=== PATIENT | male | born 1960 | race Caucasian/White ===

== ENCOUNTER 2024-05-08 18:30 | Inpatient (IN) | payer OTHER ==
--- NOTE | 2024-05-08 18:52 | ED ---
General Adult HPI - General Chief complaint: Chest Pain Stated complaint: Abn Labs Time Seen by Provider: 05/08/24 18:35 Source: patient, RN notes reviewed, old records reviewed Mode of arrival: ambulatory Limitations: no limitations - History of Present Illness Initial comments: Is a 63-year-old male who presents to the emergency department the past medical history significant for diabetes hypertension high cholesterol and smoking. Patient comes in today after he started having chest pain last night at 1 AM and was seen in another hospital and told he needed to be transferred to a tertiary facility with field operations farm manager. Patient refused the left AMA because he had to drive back down here to [place]. Patient states he also told him he was in a trial fibrillation for the first time. Patient is not on any blood thinners. Patient denies feeling the same chest discomfort as he did yesterday but he states there is a slight discomfort in his chest currently. Patient denies any radiation of the pain last night patient denies any difficulty breathing or shortness of breath or any diaphoretic episode. Patient [place] any swelling to the legs or calf tenderness. - Related Data Allergies Allergy/AdvReac Type Severity Reaction Status Date / Time No Known Allergies Allergy Verified 05/08/24 18:37 Review of Systems ROS Statement: Those systems with pertinent positive or pertinent negative responses have been documented in the HPI. ROS Other: All systems not noted in ROS Statement are negative. Past Medical History Past Medical History: Diabetes Mellitus, Hyperlipidemia, Hypertension History of Any Multi-Drug Resistant Organisms: None Reported Past Surgical History: Cholecystectomy Smoking Status: Current every day smoker General Exam - General Exam Comments Initial Comments: GENERAL: Patient is well-developed and well-nourished. Patient is nontoxic and well- hydrated and is in no acute distress. ENT: Neck is soft and supple. No significant lymphadenopathy is noted. Oropharynx is clear. Moist mucous membranes. Neck has full range of motion without eliciting any pain. EYES: The sclera were anicteric and conjunctiva were pink and moist. Extraocular movements were intact and pupils were equal round and reactive to light. Eyelids were unremarkable. PULMONARY: Unlabored respirations. Good breath sounds bilaterally. No audible rales rhonchi or wheezing was noted. CARDIOVASCULAR: There is a regular rate and rhythm without any murmurs gallops or rubs. ABDOMEN: Soft and nontender with normal bowel sounds. SKIN: Skin is clear with no lesions or rashes and otherwise unremarkable. NEUROLOGIC: Patient is alert and oriented x3. Cranial nerves II through XII are grossly intact. Motor and sensory are also intact. Normal speech, volume and content. Symmetrical smile. MUSCULOSKELETAL: Normal extremities with adequate strength and full range of motion. LYMPHATICS: No significant lymphadenopathy is noted PSYCHIATRIC: Normal psychiatric evaluation. Limitations: no limitations Course Vital Signs 05/08/24 18:34 Temperature 97.9 F Pulse Rate 64 Respiratory 16 Rate Blood Pressure 127/85 O2 Sat by Pulse 98 Oximetry Medical Decision Making - Medical Decision Making EKG is interpreted by myself EKG shows sinus rhythm at 61 bpm. Normal 143 QRS 92 QT intervals 421 QTc is 423. Patient EKG shows no ST segment ovation depression Was pt. sent in by a medical professional or institution ([facility], ADVERTISING TRAFFIC MANAGER, urgent care, hospital, or usp...) When possible be specific @ -No Did you speak to anyone other than the patient for history (EMS, parent, family, police, friend...)? What history was obtained from this source @ -No Did you review nursing and triage notes (agree or disagree)? Why? @ -I reviewed and agree with nursing and triage notes Were old charts reviewed (outside hosp., previous admission, EMS record, old EKG, old radiological studies, urgent care reports/EKG's, usp records)? Report findings @ -No old charts were reviewed Differential Diagnosis? @ -Differential Chest Pain: Stable Angina, Unstable Angina, STEMI, NSTEMI Aortic Dissection, Pneumothorax, Musculoskeletal, Esophageal Spasm GERD, Cholecystitis, Pancreatitis, Zoster, this is not meant to be an all-inclusive list. EKG interpreted by me (3pts min.). @ -As above X-rays interpreted by me (1pt min.). @ -Chest x-ray shows no acute normality CT interpreted by me (1pt min.). @ -None done U/S interpreted by me (1pt. min.). @ -None done What testing was considered but not performed or refused? (CT, X-rays, U/S, labs)? Why? @ -None What meds were considered but not given or refused? Why? @ -None Did you discuss the management of the patient with other professionals (professionals i.e. MOIS[facility] Peraza, ADVERTISING TRAFFIC MANAGER, lab, RT, psych nurse, social media sr strategy manager, indigo mixer, teacher, network security officer, catalytic case operator)? Give summary @ -Spoke with Dr. Kerns and he agreed to admit the patient. I spoke with Cardiology and informed them of the elevated troponin. Was smoking cessation discussed for >3mins.? @ -Yes Was critical care preformed (if so, how long)? @ -No Were there social determinants of health that impacted care today? How? (Homelessness, low income, unemployed, alcoholism, drug addiction, transportation, low edu. Level, literacy, decrease access to med. care, shelter, rehab)? @ -No Was there de-escalation of care discussed even if they declined (Discuss DNR or withdrawal of care, Hospice)? DNR status @ -No What co-morbidities impacted this encounter? (DM, HTN, Smoking, COPD, CAD, Cancer, CVA, ARF, Chemo, Hep., AIDS, mental health diagnosis, sleep apnea, morbid obesity)? @ -None Was patient admitted / discharged? Hospital course, mention meds given and route, prescriptions, significant lab abnormalities, going to OR and other pertinent info. @ -Patient has been chest pain-free throughout his ED course. Patients Troponin was elevated and I started him on heparin and spoke with cardiology Undiagnosed new problem with uncertain prognosis? @ -No Drug Therapy requiring intensive monitoring for toxicity (Heparin, Nitro, Insulin, Cardizem)? @ -No Were any procedures done? @ -No Diagnosis/symptom? @ -NSTEMI Acute, or Chronic, or Acute on Chronic? @ -Acute Uncomplicated (without systemic symptoms) or Complicated (systemic symptoms)? @ -Complicated Side effects of treatment? @ -No Exacerbation, Progression, or Severe Exacerbation? @ -No Poses a threat to life or bodily function? How? (Chest pain, [place], PR, pneumonia, PE, COPD, DKA, ARF, appy, cholecystitis, CVA, Diverticulitis, Homicidal, Suicidal, threat to staff... and all critical care pts) @ -Yes this could lead to end organ dysfunction - Lab Data Result diagrams: 05/08/24 18:50 05/08/24 18:50 Lab Results 05/08/24 05/08/24 05/08/24 Range/Units 18:50 18:50 18:50 WBC 7.1 (3.8-10.6) k/uL RBC 5.93 H (4.30-5.90) m/uL Hgb 18.5 H (13.0-17.5) gm/dL Hct 55.9 H (39.0-53.0) % MCV 94.2 (80.0-100.0) fL MCH 31.3 (25.0-35.0) pg MCHC 33.2 (31.0-37.0) g/dL RDW 13.5 (11.5-15.5) % Plt Count 169 (150-450) k/uL MPV 7.8 Neutrophils % 58 % Lymphocytes % 29 % Monocytes % 9 % Eosinophils % 2 % Basophils % 1 % Neutrophils # 4.1 (1.3-7.7) k/uL Lymphocytes # 2.0 (1.0-4.8) k/uL Monocytes # 0.6 (0-1.0) k/uL Eosinophils # 0.1 (0-0.7) k/uL Basophils # 0.1 (0-0.2) k/uL PT 10.5 (10.0-12.5) sec INR 1.0 (<1.2) APTT 25.1 (22.0-30.0) sec Sodium 135 L (137-145) mmol/L Potassium 3.9 (3.5-5.1) mmol/L Chloride 106 (98-107) mmol/L Carbon Dioxide 23 (22-30) mmol/L Anion Gap 6 mmol/L BUN 20 (9-20) mg/dL Creatinine 0.86 (0.66-1.25) mg/dL Est GFR (CKD-EPI)AfAm >90 (>60 ml/min/1.73 sqM) Est GFR (CKD-EPI)NonAf >90 (>60 ml/min/1.73 sqM) Glucose 151 H (74-99) mg/dL Calcium 9.2 (8.4-10.2) mg/dL Magnesium 1.8 (1.6-2.3) mg/dL Total Bilirubin 1.2 (0.2-1.3) mg/dL AST 30 (17-59) U/L ALT 16 (4-49) U/L Alkaline Phosphatase 47 (38-126) U/L Troponin I (0.000-0.034) ng/mL Total Protein 6.4 (6.3-8.2) g/dL Albumin 4.1 (3.5-5.0) g/dL 05/08/24 Range/Units 18:50 WBC (3.8-10.6) k/uL RBC (4.30-5.90) m/uL Hgb (13.0-17.5) gm/dL Hct (39.0-53.0) % MCV (80.0-100.0) fL MCH (25.0-35.0) pg MCHC (31.0-37.0) g/dL RDW (11.5-15.5) % Plt Count (150-450) k/uL MPV Neutrophils % % Lymphocytes % % Monocytes % % Eosinophils % % Basophils % % Neutrophils # (1.3-7.7) k/uL Lymphocytes # (1.0-4.8) k/uL Monocytes # (0-1.0) k/uL Eosinophils # (0-0.7) k/uL Basophils # (0-0.2) k/uL PT (10.0-12.5) sec INR (<1.2) APTT (22.0-30.0) sec Sodium (137-145) mmol/L Potassium (3.5-5.1) mmol/L Chloride (98-107) mmol/L Carbon Dioxide (22-30) mmol/L Anion Gap mmol/L BUN (9-20) mg/dL Creatinine (0.66-1.25) mg/dL Est GFR (CKD-EPI)AfAm (>60 ml/min/1.73 sqM) Est GFR (CKD-EPI)NonAf (>60 ml/min/1.73 sqM) Glucose (74-99) mg/dL Calcium (8.4-10.2) mg/dL Magnesium (1.6-2.3) mg/dL Total Bilirubin (0.2-1.3) mg/dL AST (17-59) U/L ALT (4-49) U/L Alkaline Phosphatase (38-126) U/L Troponin I 1.270 H* (0.000-0.034) ng/mL Total Protein (6.3-8.2) g/dL Albumin (3.5-5.0) g/dL Critical Care Time Critical Care Time: Yes Total Critical Care Time: 35 Disposition Clinical Impression: Acute non-ST elevation myocardial infarction (NSTEMI) Disposition: ADMITTED IP TO THIS HOSP Referrals: Brayden Kerns MD [Primary Care Provider] - 1-2 days Time of Disposition: 20:03
[2024-05-08] MEDS: NITROGLYCERIN OINT 1 INCH/GM PACKET TOPICAL STA (18:57)
[2024-05-08] MEDS: ASPIRIN 81 MG PO STA (19:01)
[2024-05-08 19:04] LABS: Basophils # (A) 0.1 k/uL (0-0.2); Basophils % (A) 1 %; Eosinophils # (A) 0.1 k/uL (0-0.7); Eosinophils % (A) 2 %; HGB 18.5 gm/dL (13.0-17.5); Lymphocytes % (A) 29 %; MCH 31.3 pg (25.0-35.0); MCHC 33.2 g/dL (31.0-37.0); MCV 94.2 fL (80.0-100.0); Mean Platelet Volume 7.8; Monocytes # (A) 0.6 k/uL (0-1.0); Monocytes % (A) 9 %; Neutrophils # (A) 4.1 k/uL (1.3-7.7); Neutrophils % (A) 58 %; Platelet Count 169 k/uL (150-450); RBC 5.93 m/uL (4.30-5.90); RDW 13.5 % (11.5-15.5); WBC 7.1 k/uL (3.8-10.6)
[2024-05-08 19:09] LABS: HCT 55.9 % (39.0-53.0)
[2024-05-08 19:13] LABS: Partial Thromboplastin Time 25.1 sec (22.0-30.0); Prothrombin Time 10.5 sec (10.0-12.5)
[2024-05-08 19:18] LABS: ALT 16 U/L (4-49); African American GFR (CKD) >90 (>60 ml/min/1.73 sqM); Albumin 4.1 g/dL (3.5-5.0); Anion Gap 6 mmol/L; Blood Urea Nitrogen 20 mg/dL (9-20); Calcium 9.2 mg/dL (8.4-10.2); Carbon Dioxide 23 mmol/L (22-30); Chloride 106 mmol/L (98-107); Glucose 151 mg/dL (74-99); Magnesium 1.8 mg/dL (1.6-2.3); Non-African American GFR(CKD) >90 (>60 ml/min/1.73 sqM); Sodium 135 mmol/L (137-145); Total Bilirubin 1.2 mg/dL (0.2-1.3); Total Protein 6.4 g/dL (6.3-8.2)
[2024-05-08 19:23] LABS: AST 30 U/L (17-59); Alkaline Phosphatase 47 U/L (38-126)
[2024-05-08 19:24] LABS: Potassium 3.9 mmol/L (3.5-5.1)
--- NOTE | 2024-05-08 19:40 | XR ---
EXAMINATION TYPE: XR chest 2V DATE OF EXAM: 05/08/2024 7:16 PM CLINICAL INDICATION:Male, 63 years old with history of Chest Pain and shortness of breath COMPARISON: Chest radiographs from the same day. TECHNIQUE: XR chest 2V Frontal view of the chest. FINDINGS: Lungs/Pleura: There is similar increased interstitial markings bilaterally. No pleural effusions or p neumothorax appreciated. Heart/mediastinum: Cardiomediastinal silhouette is stable. Musculoskeletal: No acute osseous pathology. Other findings: None IMPRESSION: Bilateral interstitial opacities is concerning for developing infectious/inflammatory process.
[2024-05-08] MEDS ORDERED: NITROGLYCERIN SL TABS 0.4 MG TAB SUBLINGUAL PRN (20:04)
[2024-05-08] MEDS: HEPARIN SODIUM 1,000 UN/ML (10ML VL) IV ONE (22:37)
[2024-05-08] MEDS: HEPARIN SOD,PORK IN 0.45% NACL 25,000 UNIT in 0.45% NACL 1 250ML.BAG IV SCH (22:38)
[2024-05-09] MEDS: NITROGLYCERIN OINT 1 INCH/GM PACKET TOPICAL SCH (00:07)
[2024-05-09] MEDS: HEPARIN SODIUM 1,000 UN/ML (10ML VL) IV PRN (05:55)
[2024-05-09] MEDS ORDERED: NITROGLYCERIN SL TABS 0.4 MG TAB SUBLINGUAL PRN (07:55)
[2024-05-09] MEDS ORDERED: DEXTROSE 50% SYRINGE 50 ML IVP PRN ×4 (08:01→22:30)
--- NOTE | 2024-05-09 08:01 | P.HPIM ---
History of Present Illness H&P Date: 05/09/24 Chief Complaint: Chest pain The patient is 60-year-old white male with known history of diabetes [place] and had [place] chest pressure. Evaluation in the hospital there showed elevated troponin. He transferred himself to his local hospital where is here for follow-up. Elevated troponin and STEMI is noted. Mechanical Maintenance consulted he will need cardiac catheterization and is agreeable. No previous anginal equivalent. Diabetes is not perfectly controlled. Opiate dependence secondary to DDD Review of Systems Constitutional: Denies chills, Denies fever Eyes: denies blurred vision, denies pain Ears, nose, mouth and throat: Denies headache, Denies sore throat Cardiovascular: Reports chest pain, Denies edema, Denies orthopnea, Denies shortness of breath Gastrointestinal: Denies abdominal pain, Denies diarrhea, Denies nausea, Denies vomiting Musculoskeletal: Denies myalgias Integumentary: Denies pruritus, Denies rash Past Medical History Past Medical History: Diabetes Mellitus, Hyperlipidemia, Hypertension History of Any Multi-Drug Resistant Organisms: None Reported Past Surgical History: Cholecystectomy Smoking Status: Current every day smoker Medications and Allergies Home Medications Medication Instructions Recorded Confirmed Type Bisoprolol [Zebeta] 5 mg PO DAILY 05/08/24 05/08/24 History Dapagliflozin Propanediol [Farxiga] 10 mg PO DAILY 05/08/24 05/08/24 History HYDROcodone/APAP 5-325MG [[place] 1 tab PO QID 05/08/24 05/08/24 History 5-325] Lisinopril-Hctz 20-25 mg 1 tab PO DAILY 05/08/24 05/08/24 History [Zestoretic 20-25] Rosuvastatin [Crestor] 10 mg PO DAILY 05/08/24 05/08/24 History metFORMIN HCL [Glucophage] 1,000 mg PO BID 05/08/24 05/08/24 History Allergies Allergy/AdvReac Type Severity Reaction Status Date / Time No Known Allergies Allergy Verified 05/08/24 20:18 Physical Exam Vitals: Vital Signs Temp Pulse Pulse Resp BP Pulse Ox 05/09/24 05:20 57 L 16 125/68 96 05/09/24 01:19 65 18 132/73 97 05/09/24 00:00 57 L 18 104/66 97 05/08/24 22:41 59 L 18 112/65 97 05/08/24 20:18 58 H 05/08/24 20:17 59 L 05/08/24 20:00 59 L 16 99 05/08/24 19:37 58 L 16 104/75 99 05/08/24 18:34 97.9 F 64 16 127/85 98 Intake and Output 05/08/24 05/09/24 05/09/24 22:59 06:59 14:59 Intake Total 72.833 Balance 72.833 Intake: Intake, IV Titration 72.833 Amount Heparin Sod,Pork in 0.45% 72.833 NaCl 25,000 unit In 0.45 % NaCl 1 250ml.bag @ 11.8 UNITS/KG/HR 10.009 mls/ hr IV .Q24H [facility] Rx#: [id number] Other: Weight 84.822 kg - Constitutional General appearance: cooperative, no acute distress - EENT Eyes: abnormal pupil - Neck Neck: no lymphadenopathy - Respiratory Respiratory: bilateral: diminished - Cardiovascular Rhythm: regular Heart sounds: normal: S1, S2 Abnormal Heart Sounds: no S3 Gallop - Gastrointestinal General gastrointestinal: soft, no tenderness, no umbilical hernia - Neurologic Neurologic: CNII-XII intact - Psychiatric Psychiatric: A&O x's 3 Results CBC & Chem 7: 05/08/24 18:50 05/08/24 18:50 Labs: Abnormal Lab Results - Last 24 Hours (Table) 05/08/24 05/08/24 05/08/24 Range/Units 18:50 18:50 18:50 RBC 5.93 H (4.30-5.90) m/uL Hgb 18.5 H (13.0-17.5) gm/dL Hct 55.9 H (39.0-53.0) % APTT (22.0-30.0) sec Sodium 135 L (137-145) mmol/L Glucose 151 H (74-99) mg/dL Troponin I 1.270 H* (0.000-0.034) ng/mL 05/08/24 05/09/24 05/09/24 Range/Units 21:27 01:01 05:12 RBC (4.30-5.90) m/uL Hgb (13.0-17.5) gm/dL Hct (39.0-53.0) % APTT 35.7 H (22.0-30.0) sec Sodium (137-145) mmol/L Glucose (74-99) mg/dL Troponin I 1.180 H* 1.010 H* (0.000-0.034) ng/mL Assessment and Plan (1) Diabetes Current Visit: Yes Status: Acute Code(s): E11.9 - TYPE 2 DIABETES MELLITUS WITHOUT COMPLICATIONS SNOMED Code(s): 23200633 (2) Hypertension Current Visit: Yes Status: Acute Code(s): I10 - ESSENTIAL (PRIMARY) HYPERTENSION SNOMED Code(s): 62394303 (3) Hyperlipidemia Current Visit: Yes Status: Acute Code(s): E78.5 - HYPERLIPIDEMIA, UNSPECIFIED SNOMED Code(s): 26473572 (4) Acute non-ST elevation myocardial infarction (NSTEMI) Current Visit: Yes Status: Acute Code(s): I21.4 - NON-ST ELEVATION (NSTEMI) MYOCARDIAL INFARCTION SNOMED Code(s): 441218027 Plan: await cardiology input for catheterization. We'll go ahead and reconcile medications as necessary. The patient is otherwise full code. Sliding scale as necessary. GI prophylaxis.
[2024-05-09] MEDS: ASPIRIN 325 MG TAB PO STA (08:37)
[2024-05-09] MEDS: ATORVASTATIN 80 MG TAB PO SCH (08:40)
[2024-05-09] MEDS: ATORVASTATIN 80 MG TAB PO STA (08:41)
[2024-05-09] MEDS: PANTOPRAZOLE 40 MG TABLET PO SCH (08:41)
[2024-05-09] MEDS ORDERED: PANTOPRAZOLE 40 MG/10 ML VIAL IVP SCH (09:00)
[2024-05-09] MEDS ORDERED: ASPIRIN 325 MG TAB PO SCH (09:00)
[2024-05-09] MEDS ORDERED: VERAPAMIL 2.5 MG/ML 2 ML AMP ONE (09:52)
[2024-05-09] MEDS ORDERED: LIDOCAINE 1% INJ 10MG/ML (20 ML MDV) ONE (09:52)
[2024-05-09] MEDS: IV FLUID CONTINUATION 1,000 ML IV ONE (09:53)
[2024-05-09] MEDS ORDERED: HEPARIN SODIUM 1,000 UN/ML (10ML VL) ONE (10:02)
[2024-05-09] MEDS ORDERED: fentaNYL (PF) 50 MCG/ML 2 ML AMP ONE (10:02)
[2024-05-09] MEDS: HEPARIN SODIUM,PORCINE 10,000 UNIT in SODIUM CHLORIDE 0.9% 1,000 ML IRRIGATION PRN (10:10)
[2024-05-09] MEDS: HEPARIN SODIUM,PORCINE (1 ML) 2,500 UNIT in SODIUM CHLORIDE 0.9% 250 ML IRRIGATION PRN (10:11)
[2024-05-09] MEDS: MIDAZOLAM 2 MG/2 ML VIAL IVP ONE (10:22)
[2024-05-09] MEDS: fentaNYL (PF) 50 MCG/ML 2 ML AMP IVP ONE (10:22)
[2024-05-09] MEDS: LIDOCAINE 1% INJ 10MG/ML (20 ML MDV) SQ ONE (10:25)
[2024-05-09] MEDS: VERAPAMIL SYRINGE (5 MG/10 ML) INTRAARTER ONE (10:26)
[2024-05-09] MEDS: HEPARIN SODIUM 1,000 UN/ML (10ML VL) IV ONE (10:27)
[2024-05-09] MEDS: IOPAMIDOL-370 200ML BTL INJ ONE (10:37)
--- NOTE | 2024-05-09 11:51 | P.CRDCN ---
History of Present Illness History of present illness: This is Dr. Lord dictating a consult on this patient The patient was interviewed and examined IMPRESSION / ASSESSMENT: Symptoms consistent with an very suggestive of angina at rest Non-Q-wave myocardial infarction with abnormal troponins, downward trend insistent with a delayed response This is consistent with the time of onset of the symptoms and the sequence of events that followed Diabetes, hypertension, dyslipidemia PLAN: High-dose statins, aspirin, continue IV heparin Discussed with Dr. Andrade Proceed with coronary angiography this morning 2 new oral beta blockers 2-D echo and Doppler study Outpatient follow-up Dr. Lord HPI Patient started experiencing chest discomfort the night before last. He was up north near [place]. He was outside [facility] getting ready to come back warm to [place]. He started experiencing severe discomfort in the chest and shortness of breath. As he was not looking good his took him to the nearby ER He was told he had atrial fibrillation and needed to be transferred to [facility] He left AGAINST MEDICAL ADVICE controlled down that [place] Here he was in normal rhythm. He was experiencing very mild discomfort. His cardiac enzymes were abnormal His EKG showed mild ST segment abnormalities Septal inferolateral ST segment abnormalities 0.[address] depression on the first EKG sinus mechanism, heart rate 61 Second EKG showed subtle ST segment depression in V3 to V6, shallow saucer- shaped ST segment rosario to digitalis effect (patient is not on digoxin) History of hypertension diabetes dyslipidemia Patient was treated with IV heparin and aspirin This morning when I saw him I gave him 80 mg of atorvastatin and oral beta blockers ROS: No fever chills or rigors, no cough, phlegm or expectoration, no nausea, vomiting or diarrhea, no hematuria, dysuria, no musculoskeletal complaints, no strokes or seizures, no skin lesions. EXAMINATION: Resting comfortably in bed stating that he wants to go home It was explained to him that he had a heart attack and needed coronary angiogra phy and medical treatment and that we would not discharge him Pulse rate in the 60s, blood pressure 112/65 mmHg Normal heart sounds no murmurs or gallops or rub No JVD no carotid bruits Abdomen soft Extremities are warm Clear lungs REVIEW OF LABS, ECG & MEDICAL DATA Hemoglobin 18.5 normal white count normal platelet count Normal electrolytes Glucose elevated 151 Troponin 1.3, 1.2, 1.0, downward trend consistent with subacute non-Q-wave [place], recent Past Medical History Past Medical History: Diabetes Mellitus, Hyperlipidemia, Hypertension History of Any Multi-Drug Resistant Organisms: None Reported Past Surgical History: Cholecystectomy Smoking Status: Current every day smoker Medications and Allergies Home Medications Medication Instructions Recorded Confirmed Type Bisoprolol [Zebeta] 5 mg PO DAILY 05/08/24 05/08/24 History Dapagliflozin Propanediol [Farxiga] 10 mg PO DAILY 05/08/24 05/08/24 History HYDROcodone/APAP 5-325MG [[place] 1 tab PO QID 05/08/24 05/08/24 History 5-325] Lisinopril-Hctz 20-25 mg 1 tab PO DAILY 05/08/24 05/08/24 History [Zestoretic 20-25] Rosuvastatin [Crestor] 10 mg PO DAILY 05/08/24 05/08/24 History metFORMIN HCL [Glucophage] 1,000 mg PO BID 05/08/24 05/08/24 History Allergies Allergy/AdvReac Type Severity Reaction Status Date / Time No Known Allergies Allergy Verified 05/08/24 20:18 Physical Exam Vitals: Vital Signs Temp Pulse Pulse Resp BP Pulse Ox 05/09/24 08:30 57 L 16 160/92 98 05/09/24 05:20 57 L 16 125/68 96 05/09/24 01:19 65 18 132/73 97 05/09/24 00:00 57 L 18 104/66 97 05/08/24 22:41 59 L 18 112/65 97 05/08/24 20:18 58 H 05/08/24 20:17 59 L 05/08/24 20:00 59 L 16 99 05/08/24 19:37 58 L 16 104/75 99 05/08/24 18:34 97.9 F 64 16 127/85 98 Intake and Output 05/08/24 05/09/24 05/09/24 22:59 06:59 14:59 Intake Total 72.833 426.5 Balance 72.833 426.5 Intake: IV 426.5 Intake, IV Titration 72.833 Amount Heparin Sod,Pork in 0.45% 72.833 NaCl 25,000 unit In 0.45 % NaCl 1 250ml.bag @ 11.8 UNITS/KG/HR 10.009 mls/ hr IV .Q24H [facility] Rx#: [id number] Other: # Voids 1 Weight 84.822 kg Results 05/08/24 18:50 05/08/24 18:50 Cardiac Enzymes 05/08/24 05/08/24 05/08/24 Range/Units 18:50 18:50 21:27 AST 30 (17-59) U/L Troponin I 1.270 H* 1.180 H* (0.000-0.034) ng/mL 05/09/24 Range/Units 01:01 AST (17-59) U/L Troponin I 1.010 H* (0.000-0.034) ng/mL Coagulation 05/08/24 05/09/24 Range/Units 18:50 05:12 PT 10.5 (10.0-12.5) sec APTT 25.1 35.7 H (22.0-30.0) sec CBC 05/08/24 Range/Units 18:50 WBC 7.1 (3.8-10.6) k/uL RBC 5.93 H (4.30-5.90) m/uL Hgb 18.5 H (13.0-17.5) gm/dL Hct 55.9 H (39.0-53.0) % Plt Count 169 (150-450) k/uL Comprehensive Metabolic Panel 05/08/24 Range/Units 18:50 Sodium 135 L (137-145) mmol/L Potassium 3.9 (3.5-5.1) mmol/L Chloride 106 (98-107) mmol/L Carbon Dioxide 23 (22-30) mmol/L BUN 20 (9-20) mg/dL Creatinine 0.86 (0.66-1.25) mg/dL Glucose 151 H (74-99) mg/dL Calcium 9.2 (8.4-10.2) mg/dL AST 30 (17-59) U/L ALT 16 (4-49) U/L Alkaline Phosphatase 47 (38-126) U/L Total Protein 6.4 (6.3-8.2) g/dL Albumin 4.1 (3.5-5.0) g/dL Current Medications Generic Name Dose Route Start Last Admin Trade Name Freq PRN Reason Stop Dose Admin Alprazolam 0.25 mg 05/09/24 07:55 Alprazolam 0.25 Mg Tab PO Q6HR PRN Mild Anxiety Alprazolam 0.5 mg 05/09/24 07:55 Alprazolam 0.5 Mg Tab PO Q6HR PRN Moderate Anxiety Aspirin 81 mg 05/10/24 09:00 Aspirin 81 Mg PO DAILY CIPRIANO Atorvastatin Calcium 80 mg 05/09/24 09:00 05/09/24 08:40 Atorvastatin 80 Mg Tab PO Not Given DAILY CIPRIANO Dextrose/Water 25 ml 05/09/24 08:01 Dextrose 50% Syringe 50 Ml IVP PER PROTOCOL PRN Hypoglycemia Protocol Dextrose/Water 50 ml 05/09/24 08:01 Dextrose 50% Syringe 50 Ml IVP PER PROTOCOL PRN Hypoglycemia Protocol Heparin Sodium (Porcine) 0 unit 05/09/24 05:44 05/09/24 05:55 Heparin Sodium 1,000 Un/Ml (10ml Vl) IV 2,120 unit PER PROTOCOL PRN Administration Low PTT Protocol Heparin Sodium/Sodium Chloride 250 mls @ 10.009 mls/hr 05/08/24 20:00 05/09/24 05:55 25,000 unit/ Sodium Chloride IV 14.15 units/kg/hr .Q24H CIPRIANO 12 mls/hr Titration Protocol 11.8 UNITS/KG/HR Heparin Sodium (Porcine) 10, 1,001 mls @ 999 mls/hr 05/10/24 07:00 05/09/24 10:10 000 unit/ Sodium Chloride IRRIGATION 05/10/24 23:00 201 mls ONCE PRN Administration INTRA-OP Heparin Sodium (Porcine) 2,500 250.5 mls @ 250 mls/hr 05/10/24 07:00 05/09/24 10:11 unit/ Sodium Chloride IRRIGATION 05/10/24 23:00 25.5 mls ONCE PRN Administration INTRA-OP Nitroglycerin 0.4 mg 05/08/24 20:04 Nitroglycerin Sl Tabs 0.4 Mg Tab SUBLINGUAL Q5M PRN Chest Pain Nitroglycerin 1 inch 05/09/24 00:00 05/09/24 05:37 Nitroglycerin Oint 1 Inch/Gm Packet TOPICAL 1 inch Q6HR CIPRIANO Administration Nitroglycerin 0.4 mg 05/09/24 07:55 Nitroglycerin Sl Tabs 0.4 Mg Tab SUBLINGUAL Q5M PRN Chest Pain Pantoprazole Sodium 40 mg 05/09/24 08:15 05/09/24 08:41 Pantoprazole 40 Mg Tablet PO 40 mg [id number] [facility] Administration Intake and Output 05/08/24 05/09/24 05/09/24 22:59 06:59 14:59 Intake Total 72.833 426.5 Balance 72.833 426.5 Intake: IV 426.5 Intake, IV Titration 72.833 Amount Heparin Sod,Pork in 0.45% 72.833 NaCl 25,000 unit In 0.45 % NaCl 1 250ml.bag @ 11.8 UNITS/KG/HR 10.009 mls/ hr IV .Q24H [facility] Rx#: [id number] Other: # Voids 1 Weight 84.822 kg 05/08/24 18:50 05/08/24 18:50
[2024-05-09] MEDS: HYDROcodone/APAP 5-325MG 1 EACH TAB PO SCH (11:59)
--- NOTE | 2024-05-09 12:36 | P.GSCN ---
History of Present Illness Consult date: 05/09/24 Reason for Consult: Coronary artery disease, non-STEMI this admission Requesting physician: Keron Andrade History of present illness: This is a 63-year-old gentleman who follows outpatient with Dr. Kerns for primary care. He has a previous medical history of hypertension, hyperlipidemia, diabetes mellitus, current tobacco dependence, occasional marijuana use, covid in 2021, and apparently was told he had a brief episode of atrial fibrillation at an outside hospital although current telemetry shows sinus bradycardia. This gentleman was up in [place] and was going to leave the following morning when he experienced some chest pain after lifting wood. He denied any other symptomatology such as shortness of breath, nausea, diaphoresis. He laid down expecting the pain to go away, however he was unable to get comfortable and tossed and turned for a bit before finally asking his to take him to the emergency room in [place]. Apparently they did an EKG and cardiac enzymes and recommended transfer to a [facility] for cardiology evaluation, however the patient did not [place] so he left AGAINST MEDICAL ADVICE and drove himself home so he could present to [facility] emergency room. Of note, the patient was told in [place] that he had A. fib which he had never been told prior. In the ER here at [facility] his EKG demonstrated sinus rhythm with nonspecific T-wave abnormality. Chest x-ray revealed bilateral interstitial opacities. Lab work revealed WBC 7.1, hemoglobin 18.5, creatinine 0.86, and troponins were elevated at 1.27 which trended down to 1.01. He was ruled in for non-STEMI and admitted for evaluation and treatment with consultation placed to cardiology. Heart catheterization was completed today by Dr. Andrade revealing 70% RCA stenosis, 80% circumflex stenosis, 70% proximal LAD stenosis with 100% mid LAD stenosis. Due to these findings consultation was placed to cardiothoracic surgery for surgical revascularization recommendations. Review of Systems Review of systems was completed and was negative except as noted - Cardiovascular Reports as per HPI, Reports chest pain Past Medical History Past Medical History: Atrial Fibrillation, Coronary Artery Disease (CAD), Chest Pain / Angina, Diabetes Mellitus, Hyperlipidemia, Hypertension, Myocardial Infarction (AR) Additional Past Medical History / Comment(s): Questionable sleep apnea, patient has never been tested, states he would refuse to wear a BiPAP mask anyway History of Any Multi-Drug Resistant Organisms: None Reported Past Surgical History: Cholecystectomy Past Anesthesia/Blood Transfusion Reactions: No Reported Reaction Past Psychological History: No Psychological Hx Reported Smoking Status: Current every day smoker Past Alcohol Use History: None Reported Past Drug Use History: Marijuana Additional Drug Use History / Comment(s): Quit smoking cigarettes approximately 5-6 years ago, continues to smoke cigars - Past Family History Mother Family Medical History: Cancer Additional Family Medical History / Comment(s): from lung cancer Father Additional Family Medical History / Comment(s): in 1962, possibly from p olio Medications and Allergies Home Medications Medication Instructions Recorded Confirmed Type Bisoprolol [Zebeta] 5 mg PO DAILY 05/08/24 05/08/24 History Dapagliflozin Propanediol [Farxiga] 10 mg PO DAILY 05/08/24 05/08/24 History HYDROcodone/APAP 5-325MG [[place] 1 tab PO QID 05/08/24 05/08/24 History 5-325] Lisinopril-Hctz 20-25 mg 1 tab PO DAILY 05/08/24 05/08/24 History [Zestoretic 20-25] Rosuvastatin [Crestor] 10 mg PO DAILY 05/08/24 05/08/24 History metFORMIN HCL [Glucophage] 1,000 mg PO BID 05/08/24 05/08/24 History Allergies Allergy/AdvReac Type Severity Reaction Status Date / Time No Known Allergies Allergy Verified 05/08/24 20:18 Surgical - Exam Vital Signs Temp Pulse Resp BP Pulse Ox 97.9 F 64 16 127/85 98 05/08/24 18:34 05/08/24 18:34 05/08/24 18:34 05/08/24 18:34 05/08/24 18:34 CONSTITUTIONAL: Awake and alert, appears comfortable, cooperative, well- developed, well-nourished, no pain, no acute distress EYES: Pupils equal, round, reactive to light, normal ocular movement ENT: Moist mucous membranes without oral lesions present NECK: No masses, no bruits, trachea midline RESPIRATORY: Lungs sounds clear to auscultation bilaterally. Respirations even, nonlabored. Currently on room air with oxygen saturation 97%. Strong cough. No chest wall deformities. No clubbing or cyanosis present CARDIOVASCULAR: S1, S2 present. Regular rate and rhythm, sinus paige on telemetry. Palpable peripheral pulses bilaterally. No edema present. No calf pain or tenderness noted. No significant lower extremity varicosities noted. Left radial Yoav's test less than 8 seconds. GASTROINTESTINAL: Abdomen soft, nontender, nondistended without masses or organomegaly noted. There is no rebound or guarding present. Active bowel sounds present 4 quadrants. GENITOURINARY: Deferred INTEGUMENTARY: Skin is warm and dry with evidence of good perfusion. NEUROLOGIC: Cranial nerves II through XII intact, normal coordination, no obvious motor or sensory deficits, speech is normal MUSKULOSKELETAL: Able to move all extremities, strength equal bilaterally, normal posture PSYCHIATRIC: Alert and oriented to person place and time, appropriate affect, intact judgment and insight CLINICAL FRAILTY SCORE: 3 Results - Labs 05/08/24 18:50 05/08/24 18:50 Abnormal Lab Results - Last 24 Hours (Table) 05/08/24 05/08/24 05/08/24 Range/Units 18:50 18:50 18:50 RBC 5.93 H (4.30-5.90) m/uL Hgb 18.5 H (13.0-17.5) gm/dL Hct 55.9 H (39.0-53.0) % APTT (22.0-30.0) sec Sodium 135 L (137-145) mmol/L Glucose 151 H (74-99) mg/dL Troponin I 1.270 H* (0.000-0.034) ng/mL 05/08/24 05/09/24 05/09/24 Range/Units 21:27 01:01 05:12 RBC (4.30-5.90) m/uL Hgb (13.0-17.5) gm/dL Hct (39.0-53.0) % APTT 35.7 H (22.0-30.0) sec Sodium (137-145) mmol/L Glucose (74-99) mg/dL Troponin I 1.180 H* 1.010 H* (0.000-0.034) ng/mL Diabetes panel 05/08/24 Range/Units 18:50 Sodium 135 L (137-145) mmol/L Potassium 3.9 (3.5-5.1) mmol/L Chloride 106 (98-107) mmol/L Carbon Dioxide 23 (22-30) mmol/L BUN 20 (9-20) mg/dL Creatinine 0.86 (0.66-1.25) mg/dL Glucose 151 H (74-99) mg/dL Calcium 9.2 (8.4-10.2) mg/dL AST 30 (17-59) U/L ALT 16 (4-49) U/L Alkaline Phosphatase 47 (38-126) U/L Total Protein 6.4 (6.3-8.2) g/dL Albumin 4.1 (3.5-5.0) g/dL Calcium panel 05/08/24 Range/Units 18:50 Calcium 9.2 (8.4-10.2) mg/dL Albumin 4.1 (3.5-5.0) g/dL Pituitary panel 05/08/24 Range/Units 18:50 Sodium 135 L (137-145) mmol/L Potassium 3.9 (3.5-5.1) mmol/L Chloride 106 (98-107) mmol/L Carbon Dioxide 23 (22-30) mmol/L BUN 20 (9-20) mg/dL Creatinine 0.86 (0.66-1.25) mg/dL Glucose 151 H (74-99) mg/dL Calcium 9.2 (8.4-10.2) mg/dL Adrenal panel 05/08/24 Range/Units 18:50 Sodium 135 L (137-145) mmol/L Potassium 3.9 (3.5-5.1) mmol/L Chloride 106 (98-107) mmol/L Carbon Dioxide 23 (22-30) mmol/L BUN 20 (9-20) mg/dL Creatinine 0.86 (0.66-1.25) mg/dL Glucose 151 H (74-99) mg/dL Calcium 9.2 (8.4-10.2) mg/dL Total Bilirubin 1.2 (0.2-1.3) mg/dL AST 30 (17-59) U/L ALT 16 (4-49) U/L Alkaline Phosphatase 47 (38-126) U/L Total Protein 6.4 (6.3-8.2) g/dL Albumin 4.1 (3.5-5.0) g/dL - Imaging Chest x-ray: report reviewed, image reviewed EKG: image reviewed Additional studies: Heart catheterization films reviewed Assessment and Plan Assessment: Triple-vessel coronary artery disease, non-STEMI this admission Chest pain secondary to above History of hypertension Hyperlipidemia, treated Diabetes mellitus Current tobacco dependence Occasional marijuana use Covid in 2021 Questionable brief episode of atrial fibrillation at [facility], current EKG/telemetry shows sinus bradycardia Plan: The patient was seen and examined at the bedside in the extended stay unit with his while waiting for a bed on 3 S. Chart/diagnostics were reviewed. The usual perioperative course of open heart surgery was discussed in detail with the patient and his , risks and benefits were reviewed, all questions were answered. Preoperative testing was initiated, once completed will calculate STS risk score and discuss with the patient. 5 m walk test will be completed. Will discuss the case in detail with Dr. Yin. Recommend initiating aspirin, continuing statin and beta gerardo. Risk factor modification was discussed including counseling and education regarding complete smoking cessation. More recommendations to follow once testing completed and Dr. Yin has had the opportunity to review the patient's films. Thank you Dr. Andrade for this consult. I have personally seen and examined the patient, performed the documentation and the assessment and plan as written. Number of minutes spent on the visit: 30. MAGALYS Green
--- NOTE | 2024-05-09 13:21 | US ---
EXAMINATION TYPE: US carotid duplex BILAT DATE OF EXAM: 05/09/2024 Exam done portable COMPARISON: NONE CLINICAL INDICATION: Male, 63 years old with history of preop cardiac surgery; TECHNIQUE: Carotid duplex ultrasound examination. Indirect Doppler criteria was utilized. FINDINGS: EXAM MEASUREMENTS: RIGHT: Peak Systolic Velocity (PSV) cm/sec ----- Right CCA: 66.8 ----- Right ICA: 69.4 ----- Right ECA: 89.8 ICA/CCA ratio: 1.0 RIGHT: End Diastole cm/sec ----- Right CCA: 11.9 ----- Right ICA: 20.6 ----- Right ECA: 0.0 LEFT: Peak Systolic Velocity (PSV) cm/sec ----- Left CCA: 74.3 ----- Left ICA: 64.3 ----- Left ECA: 85.9 ICA/CCA ratio: 0.9 LEFT: End Diastole cm/sec ----- Left CCA: 13.8 ----- Left ICA: 16.4 ----- Left ECA: 4.4 VERTEBRALS (direction of flow): Right Vertebral: Antegrade Left Vertebral: Antegrade Rhythm: Normal No significant stenosis IMPRESSION: Less than 50% stenosis of the bilateral carotid bifurcations. Criteria for Assigning % of Stenosis / Diameter reduction (Estimation based on the indirect measurements of the internal carotid artery velocities (ICA PSV). 1. Normal (no stenosis)=ICA PSV < 125 cm/s: ratio < 2.0: ICA EDV<40 cm/s. 2. Less than 50% stenosis=ICA PSV < 125 cm/s: ratio < 2.0: ICA EDV<40 cm/s. 3. 50 to 69% stenosis=ICA PSV of 125 to 230 cm/s: ration 2.0 ? 4.0: ICA EDV 40-100 cm/s. 4. Greater than 70% stenosis to near occlusion= ICA PSV > 230 cm/s: ratio > 4.0: ICA EDV > 100 cm/s. 5. Near occlusion= ICA PSV velocities may be low or undetectable: variable ratio and ICA EDV. 6. Total occlusion=unable to detect flow.
--- NOTE | 2024-05-09 13:25 | US ---
EXAMINATION TYPE: Pre-Operative Non-Invasive Evaluation of the hand for Potential Radial Artery Cali perez, Measurements only Exam done portable DATE OF EXAM: 05/09/2024 1:13 PM CLINICAL INDICATION: Male, 63 years old with history of measurements only; SIDE PERFORMED: Left TECHNIQUE: Radial artery is measured utilizing real time linear array sonography. Duplex Findings: Radial Artery: Color flow seen Measurements in mm, transverse view: Left Radial: Proximal: 2.6 x 2.8 mm Mid: 2.6 x 3.0 mm Distal: 2.6 x 3.1 mm IMPRESSION: 1. Left Radial artery measurements listed above. 2. Performing surgeon to determine viability as conduit.
--- NOTE | 2024-05-09 13:26 | US ---
EXAMINATION TYPE: US vein mapping BILAT DATE OF EXAM: 05/09/2024 1:14 PM Exam done portable COMPARISON: NONE CLINICAL INDICATION: Male, 63 years old with history of preop cardiac surgery; SIDE PERFORMED: Bilateral TECHNIQUE: Lower extremity saphenous vein is examined and measured utilizing real time linear array sonography. DUPLEX FINDINGS: Greater Saphenous: Color flow seen Lesser Saphenous: Color flow seen Measurements in mm: Right Greater Saphenous: Groin: 6.5 x 8.2 mm High Thigh: 5.4 x 5.1 mm Mid Thigh: 3.4 x 4.0 mm Above Knee: 3.7 x 4.1 mm Knee: 3.3 x 4.1 mm Below Knee: 2.8 x 3.5 mm Mid Calf: 2.6 x 2.9 mm At Ankle: 1.9 x 2.2 mm Left Greater Saphenous: Groin: 6.8 x 7.9 mm High Thigh: 4.9 x 5.1 mm Mid Thigh: 3.2 x 4.1 mm Above Knee: 4.0 x 4.5 mm Knee: 3.7 x 4.1 mm Below Knee: 2.8 x 3.2 mm Mid Calf: 2.1 x 2.6 mm At Ankle: 2.6 x 3.0 mm IMPRESSION: 1. Bilateral GSV measurements listed above. 2. Performing surgeon to determine viability as conduit.
--- NOTE | 2024-05-09 14:02 | CT ---
EXAMINATION TYPE: CT chest wo con DATE OF EXAM: 05/09/2024 COMPARISON: None HISTORY: eval aorta for clamp ability for open heart CT DLP: 340.[address] of the chest was performed with lung and mediastinal window settings submitted. The la ck of contrast limits evaluation of the vascular, mediastinal and parenchymal structures including th e upper abdomen. LUNGS: The lungs are clear and free of infiltrate. No atelectasis. There is irregular pleural based n odular density right upper lobe measuring about 1.7 cm craniocaudal dimension. I cannot exclude malig anthony and PET CT is recommended for further evaluation. No additional pulmonary nodule seen. Minimal subpleural fibrosis right upper lobe and right lower lobe. No pleural effusion. No CT evidence of in terstitial lung disease. MEDIASTINUM/JED: Ectasia of the ascending thoracic aorta measuring 3.9 cm without aneurysm. Aortic a rch and descending thoracic aorta of normal caliber. The heart is not enlarged. No evidence for medi astinal mass. No lymph nodes greater than 1cm. UPPER ABDOMEN: 1.There is irregular pleural based nodular density right upper lobe measuring approximately 1.7 cm cr aniocaudal dimension. I cannot exclude malignancy and PET CT is recommended for further evaluation. 2. Thoracic aorta as noted. OTHER: No significant other abnormality. IMPRESSION: 1.
[2024-05-09 16:23] LABS: Glucose,Whole Blood 179 mg/dL (70-110)
[2024-05-09 19:02] LABS: Basophils # (A) 0.1 k/uL (0-0.2); Basophils % (A) 1 %; Eosinophils # (A) 0.2 k/uL (0-0.7); Eosinophils % (A) 3 %; HCT 51.7 % (39.0-53.0); HGB 17.6 gm/dL (13.0-17.5); Lymphocytes # (A) 1.9 k/uL (1.0-4.8); Lymphocytes % (A) 26 %; MCH 32.2 pg (25.0-35.0); MCV 94.9 fL (80.0-100.0); Mean Platelet Volume 7.9; Monocytes # (A) 0.5 k/uL (0-1.0); Monocytes % (A) 6 %; Neutrophils # (A) 4.8 k/uL (1.3-7.7); Neutrophils % (A) 63 %; Platelet Count 145 k/uL (150-450); RBC 5.45 m/uL (4.30-5.90); RDW 13.4 % (11.5-15.5); WBC 7.6 k/uL (3.8-10.6)
[2024-05-09 19:46] LABS: ALT 15 U/L (4-49); AST 24 U/L (17-59); African American GFR (CKD) >90 (>60 ml/min/1.73 sqM); Albumin 3.4 g/dL (3.5-5.0); Alkaline Phosphatase 47 U/L (38-126); Anion Gap 4 mmol/L; Blood Urea Nitrogen 17 mg/dL (9-20); Calcium 8.6 mg/dL (8.4-10.2); Carbon Dioxide 20 mmol/L (22-30); Chloride 110 mmol/L (98-107); Glucose 186 mg/dL (74-99); Non-African American GFR(CKD) >90 (>60 ml/min/1.73 sqM); Potassium 3.9 mmol/L (3.5-5.1); Sodium 134 mmol/L (137-145); Total Bilirubin 0.9 mg/dL (0.2-1.3); Total Protein 5.6 g/dL (6.3-8.2)
[2024-05-09 20:02] LABS: Glucose,Whole Blood 202 mg/dL (70-110)
[2024-05-09] MEDS: INSULIN ASPART (NovoLOG) 100 UNIT/ML VIAL SQ SCH (23:34)
[2024-05-10 02:09] LABS: Hepatitis A Antibody IgM Nonreactive (Nonreactive); Hepatitis B Core IgM Nonreactive (Nonreactive); Hepatitis B Surface Antigen Nonreactive (Nonreactive); Hepatitis C IgG Antibody Nonreactive (Nonreactive)
[2024-05-10 02:12] LABS: Magnesium 1.9 mg/dL (1.5-2.4)
[2024-05-10 02:25] LABS: Chol/HDL Ratio 5.22 Ratio; LDL Cholesterol,Calculated 75.7 mg/dL (0.0-131.0)
[2024-05-10 06:31] LABS: Glucose,Whole Blood 175 mg/dL (70-110)
[2024-05-10] MEDS: ASPIRIN 81 MG PO SCH (07:56)
--- NOTE | 2024-05-10 11:14 | P.PN ---
Subjective Progress Note Date: 05/10/24 Principal diagnosis: Triple-vessel coronary artery disease, non-STEMI this admission. History of hypertension, hyperlipidemia, diabetes mellitus, current tobacco dependence, occasional marijuana use, covid in 2021, questionable brief episode of atrial fibrillation at [facility] The patient was seen and examined this morning with Dr. Martin after long discussion with Dr. Yin and Dr. Andrade. The patient is not a surgical candidate as his coronary vessels are too small and bypasses would fail. This was discussed this morning with the patient and his who are a bit dismayed but do understand. Recommend stenting of the LAD versus medical management, will defer to Dr. Andrade's judgment. Patient remains in sinus bradycardia and hemodynamically stable. Denies any further chest pain or shortness of breath. He was counseled regarding risk factor modification including complete smoking cessation and control of his diabetes. Objective - Vital Signs Vital signs: Vital Signs Temp 98.5 F 05/10/24 08:00 Pulse 61 05/10/24 08:00 Resp 18 05/10/24 08:00 BP 121/67 05/10/24 08:00 Pulse Ox 97 05/10/24 08:18 FiO2 Intake & Output 05/09/24 05/10/24 05/10/24 18:59 06:59 18:59 Intake Total 894.5 358 Output Total 400 0 Balance 494.5 0 358 Weight 79.7 kg Intake: IV 636.5 Invasive Line 1 10 Intake, IV Titration 58 Amount Heparin Sod,Pork in 0.45% 58 NaCl 25,000 unit In 0.45 % NaCl 1 250ml.bag @ 11.8 UNITS/KG/HR 10.009 mls/ hr IV .Q24H [facility] Rx#: [id number] Oral 200 358 Output: Urine 400 0 Other: Voiding Method Toilet Toilet Toilet Urinal Urinal Urinal # Voids 1 2 - Exam CONSTITUTIONAL: Appears comfortable, cooperative, no acute distress RESPIRATORY: Lungs sounds diminished bilaterally. Respirations even, nonlabored. Currently on room air with oxygen saturation 97%. Able to achieve 2000 mL on incentive spirometry. Strong cough. CARDIOVASCULAR: S1, S2 present. Regular rate and rhythm, sinus bradycardia on telemetry. Palpable peripheral pulses bilaterally. No edema present. GASTROINTESTINAL: Abdomen soft, nontender, nondistended. Active bowel sounds present 4 quadrants. Tolerating diet. GENITOURINARY: Continues to void INTEGUMENTARY: Skin is warm and dry NEUROLOGIC: Cranial nerves II through XII intact MUSKULOSKELETAL: Able to move all extremities, strength equal bilaterally, gait normal PSYCHIATRIC: Alert and oriented to person place and time, appropriate affect, intact judgment and insight - Allied health notes Allied health notes reviewed: nursing - Labs CBC & Chem 7: 05/09/24 18:51 05/09/24 18:51 Labs: Abnormal Lab Results - Last 24 Hours (Table) 05/09/24 05/09/24 05/09/24 Range/Units 16:18 18:51 18:51 Hgb (13.0-17.5) gm/dL Plt Count (150-450) k/uL Sodium 134 L (137-145) mmol/L Chloride 110 H (98-107) mmol/L Carbon Dioxide 20 L (22-30) mmol/L Glucose 186 H (74-99) mg/dL POC Glucose (mg/dL) 179 H (70-110) mg/dL Total Protein 5.6 L (6.3-8.2) g/dL Albumin 3.4 L (3.5-5.0) g/dL Triglycerides 252.00 H (0.00-149.00) mg/dL VLDL Cholesterol, Calc 50.40 H (5.00-40.00) mg/dL HDL Cholesterol 29.90 L (40.00-60.00) mg/dL 05/09/24 05/09/24 05/10/24 Range/Units 18:51 19:59 06:30 Hgb 17.6 H (13.0-17.5) gm/dL Plt Count 145 L (150-450) k/uL Sodium (137-145) mmol/L Chloride (98-107) mmol/L Carbon Dioxide (22-30) mmol/L Glucose (74-99) mg/dL POC Glucose (mg/dL) 202 H 175 H (70-110) mg/dL Total Protein (6.3-8.2) g/dL Albumin (3.5-5.0) g/dL Triglycerides (0.00-149.00) mg/dL VLDL Cholesterol, Calc (5.00-40.00) mg/dL HDL Cholesterol (40.00-60.00) mg/dL Assessment and Plan Assessment: Triple-vessel coronary artery disease, non-STEMI this admission Chest pain secondary to above History of hypertension Hyperlipidemia, treated Diabetes mellitus Current tobacco dependence Occasional marijuana use Covid in 2021 Questionable brief episode of atrial fibrillation at [facility], current EKG/telemetry shows sinus bradycardia Plan: Recommend stenting versus medical management, will defer to cardiology judgment No surgical intervention planned Increase activity as tolerated Continue to maximize medical therapy with aspirin, statin, beta-gerardo Risk factor modification was discussed Will sign off, please call with any further questions
[2024-05-10] MEDS: ISOSORBIDE MONONITRATE ER 30 MG TAB.ER.24H PO SCH (11:33)
[2024-05-10] MEDS: carvediloL 3.125 MG TAB PO SCH (11:33)
[2024-05-10 11:53] LABS: Glucose,Whole Blood 235 mg/dL (70-110)
--- NOTE | 2024-05-10 12:28 | CA ---
Transthoracic Echo Report Name: Gurvinder Lemon Age: 63 Gender: M : 1960 Exam Date: 05/09/2024 14:32 Exam Location: [facility] Ht (in): 73 Wt (lb): 187 Ordering Physician: Marco Lord MD ([id number]) Attending/Referring Phys: Toy Mechanic Denise Centeno, KATHLEEN Procedure CPT: Indications: nonq wave UT Cardiac Hx: Technical Quality: Fair Contrast 1: Definity Total Dose (mL): 2 Contrast 2: Total Dose (mL): MEASUREMENTS (Male / Female) Normal Values 2D ECHO LV Diastolic Diameter PLAX 4.5 cm 4.2 - 5.9 / 3.9 - 5.3 cm LV Systolic Diameter PLAX 3.5 cm IVS Diastolic Thickness 1.1 cm 0.6 - 1.0 / 0.6 - 0.9 cm LVPW Diastolic Thickness 1.1 cm 0.6 - 1.0 / 0.6 - 0.9 cm LV Relative Wall Thickness 0.5 RV Internal Dim ED PLAX 2.8 cm LA Systolic Diameter LX 4.3 cm 3.0 - 4.0 / 2.7 - 3.8 cm LV Diastolic Volume MOD BP 100.4 cm??? 67 - 155 / 56 - 104 cm??? LV Systolic Volume MOD BP 34.0 cm??? / 19 - 49 cm??? LV Ejection Fraction MOD BP 66.1 % >= 55 % LV Cardiac Index MOD BP 1678.9 cm???/min???m??? LV Diastolic Volume MOD 4C 103.6 cm??? LV Systolic Volume MOD 4C 30.6 cm??? LV Ejection Fraction MOD 4C 70.5 % LV Cardiac Index MOD 4C 1847.2 cm???/min???m??? LV Diastolic Length 4C 7.9 cm LV Systolic Length 4C 6.9 cm LV Diastolic Volume MOD 2C 97.4 cm??? LV Systolic Volume MOD 2C 36.7 cm??? LV Ejection Fraction MOD 2C 62.3 % LV Cardiac Index MOD 2C 1535.3 cm???/min???m??? LV Diastolic Length 2C 7.8 cm LV Systolic Length 2C 6.6 cm LA Volume 79.7 cm??? - 58 / 22 - 52 cm??? LA Volume Index 38.1 cm???/m??? 16 - 28 cm???/m??? M-MODE Aortic Root Diameter MM 2.8 cm LA Systolic Diameter MM 4.0 cm LA Ao Ratio MM 1.4 AV Cusp Separation MM 2.2 cm DOPPLER MV Area PHT 2.9 cm??? Mitral E Point Velocity 89.6 cm/s Mitral A Point Velocity 61.8 cm/s Mitral E to A Ratio 1.5 MV Deceleration Time 264.6 ms TR Peak Velocity 209.3 cm/s TR Peak Gradient 17.5 mmHg Right Ventricular Systolic Press 22.5 mmHg FINDINGS Left Ventricle Left ventricular ejection fraction is estimated at 55-60 %. No obvious regional wall motion abnormalities. Left ventricular cavity size normal. Left ventricular wall thickness normal. Right Ventricle Normal right ventricular size and function. Right ventricular systolic pressure within normal limits. Right Atrium Mild right atrial dilatation. Left Atrium Mildly increased left atrial diameter. Moderately increased left atrial volume. Mildly increased left atrial area. Mitral Valve Structurally normal mitral valve. Mild mitral regurgitation. Aortic Valve Trileaflet aortic valve. No aortic valve stenosis or regurgitation. Tricuspid Valve Structurally normal tricuspid valve. Mild tricuspid regurgitation. No tricuspid stenosis. Pulmonic Valve Structurally normal pulmonic valve. No pulmonic stenosis. Trace pulmonic regurgitation. Pericardium No pericardial or pleural effusion. Aorta Normal size aortic root and proximal ascending aorta. CONCLUSIONS Normal LV size and systolic function Moderate left atrial enlargement No clear-cut wall motion abnormalities on the LV Normal RV size and function Previewed by: Dr. Marco Lord MD (Electronically Signed) Final Date: 10 May 2024 12:28
--- NOTE | 2024-05-10 12:56 | P.PN ---
Subjective HISTORY OF PRESENT ILLNESS: Patient is status postcardiac catheterization yesterday with Dr. Andrade revealing 70% RCA stenosis, 80% circumflex stenosis, 70% proximal LAD stenosis with 100% mid LAD stenosis. CT surgery was consulted for CABG evaluation. Patient was found not to be a surgical candidate due to his small coronary vessels and bypasses would fail. Patient examined this morning at the bedside. Patient currently denies any chest pain or pressure. He denies any shortness of breath. He has been up ambulating without difficulty. Vital signs are stable. Echocardiogram completed revealing ejection fraction 55 to 60% with moderate left atrial enlargement. PHYSICAL EXAM: VITAL SIGNS: Reviewed. GENERAL: Well-developed in no acute distress. NECK: Supple. No JVD or thyromegaly LUNGS: Respirations even and unlabored. Lungs essentially clear to auscultation bilaterally. HEART: Regular rate and rhythm. S1 and S2 heard. EXTREMITIES: Normal range of motion. No clubbing or cyanosis. Peripheral pulses intact. No lower extremity edema ASSESSMENT: Non-STEMI status post cardiac catheterization revealing triple-vessel coronary artery disease Hypertension Hyperlipidemia Diabetes Nicotine dependence Occasional marijuana use Questionable brief episode of atrial fibrillation at [facility] PLAN: Continue current cardiac medications Discontinue Nitropaste. Add Imdur 30 mg daily Add carvedilol 3.125 mg twice a day Dr. Lord to speak with Dr. Andrade regarding possible PCI on Sunday or Sunday Further recommendations pending patient course Nurse practitioner note has been reviewed by physician. Signing provider agrees with the documented findings, assessment, and plan of care documented by BUSINESS SERVICES ADMINISTRATOR as a scribe. Objective - Vital Signs Vital signs: Vital Signs Temp 98.5 F 05/10/24 08:00 Pulse 50 L 05/10/24 12:00 Resp 16 05/10/24 12:00 BP 143/64 05/10/24 12:00 Pulse Ox 98 05/10/24 12:00 FiO2 Intake & Output 05/09/24 05/10/24 05/10/24 18:59 06:59 18:59 Intake Total 894.5 358 Output Total 400 0 Balance 494.5 0 358 Weight 79.7 kg Intake: IV 636.5 Invasive Line 1 10 Intake, IV Titration 58 Amount Heparin Sod,Pork in 0.45% 58 NaCl 25,000 unit In 0.45 % NaCl 1 250ml.bag @ 11.8 UNITS/KG/HR 10.009 mls/ hr IV .Q24H [facility] Rx#: [id number] Oral 200 358 Output: Urine 400 0 Other: Voiding Method Toilet Toilet Toilet Urinal Urinal Urinal # Voids 1 2 - Labs CBC & Chem 7: 05/09/24 18:51 05/09/24 18:51 Labs: Abnormal Lab Results - Last 24 Hours (Table) 05/09/24 05/09/24 05/09/24 Range/Units 16:18 18:51 18:51 Hgb (13.0-17.5) gm/dL Plt Count (150-450) k/uL Sodium 134 L (137-145) mmol/L Chloride 110 H (98-107) mmol/L Carbon Dioxide 20 L (22-30) mmol/L Glucose 186 H (74-99) mg/dL POC Glucose (mg/dL) 179 H (70-110) mg/dL Total Protein 5.6 L (6.3-8.2) g/dL Albumin 3.4 L (3.5-5.0) g/dL Triglycerides 252.00 H (0.00-149.00) mg/dL VLDL Cholesterol, Calc 50.40 H (5.00-40.00) mg/dL HDL Cholesterol 29.90 L (40.00-60.00) mg/dL 05/09/24 05/09/24 05/10/24 Range/Units 18:51 19:59 06:30 Hgb 17.6 H (13.0-17.5) gm/dL Plt Count 145 L (150-450) k/uL Sodium (137-145) mmol/L Chloride (98-107) mmol/L Carbon Dioxide (22-30) mmol/L Glucose (74-99) mg/dL POC Glucose (mg/dL) 202 H 175 H (70-110) mg/dL Total Protein (6.3-8.2) g/dL Albumin (3.5-5.0) g/dL Triglycerides (0.00-149.00) mg/dL VLDL Cholesterol, Calc (5.00-40.00) mg/dL HDL Cholesterol (40.00-60.00) mg/dL 05/10/24 Range/Units 11:51 Hgb (13.0-17.5) gm/dL Plt Count (150-450) k/uL Sodium (137-145) mmol/L Chloride (98-107) mmol/L Carbon Dioxide (22-30) mmol/L Glucose (74-99) mg/dL POC Glucose (mg/dL) 235 H (70-110) mg/dL Total Protein (6.3-8.2) g/dL Albumin (3.5-5.0) g/dL Triglycerides (0.00-149.00) mg/dL VLDL Cholesterol, Calc (5.00-40.00) mg/dL HDL Cholesterol (40.00-60.00) mg/dL
--- NOTE | 2024-05-10 15:22 | P.PN ---
Subjective Progress Note Date: 05/10/24 Interval History: Patient admitted for NSTEMI, underwent cardiac catheterization which showed three-vessel coronary artery disease, cardiology and cardiac surgery consulted, cardiac surgery recommended PCI/medical management. Cardiology planning for PCI on Sunday or Sunday. Patient was seen and examined today. Denied any further chest pain shortness of breath, dizziness, palpitations. Counseling to quit smoking done. REVIEW OF SYSTEMS: CONSTITUTIONAL: No fever, no malaise,. CARDIOVASCULAR: No chest pain, no palpitations, no syncope. PULMONARY: No shortness of breath, no cough, GASTROINTESTINAL: No diarrhea, no nausea, no vomiting, no abdominal pain. NEUROLOGICAL: No headaches, no weakness, PHYSICAL EXAMINATION: GENERAL: The patient is alert and oriented x3, not in any acute distress. Well developed, well nourished. HEENT: Pupils are round and equally reacting to light. EOMI. No scleral icterus. No conjunctival pallor. Normocephalic, atraumatic. No pharyngeal erythema. No thyromegaly. CARDIOVASCULAR: S1 and S2 present. No murmurs, rubs, or gallops. PULMONARY: Chest is clear to auscultation, no wheezing or crackles. ABDOMEN: Soft, nontender, nondistended, normoactive bowel sounds. No palpable organomegaly. MUSCULOSKELETAL: No joint swelling or deformity. EXTREMITIES: No cyanosis, clubbing, or pedal edema. NEUROLOGICAL: Gross neurological examination did not reveal any focal deficits. SKIN: No rashes. Assessment and plan NSTEMI: Three-vessel coronary artery disease: Hypertension: Hyperlipidemia: Admitted for NSTEMI, s/p cardiac catheterization showing three-vessel coronary artery disease Echocardiogram Cardiology and cardiac surgery consulted Was initially on heparin drip. Cardiac surgery recommended no surgical intervention. Plan for possible PCI on Sunday or Sunday Aspirin, statin, beta-gerardo, Imdur, as needed sublingual nitroglycerin. Marijuana use: Nicotine dependence Reported brief episode of atrial fibrillation at outside facility Dictation was produced using [employer] dictation software. please excuse any grammatical, word or spelling errors. Objective - Vital Signs Vital signs: Vital Signs Temp 98.5 F 05/10/24 08:00 Pulse 50 L 05/10/24 12:00 Resp 16 05/10/24 12:00 BP 143/64 05/10/24 12:00 Pulse Ox 98 05/10/24 12:00 FiO2 Intake & Output 05/09/24 05/10/24 05/10/24 18:59 06:59 18:59 Intake Total 894.5 898 Output Total 400 0 Balance 494.5 0 898 Weight 79.7 kg Intake: IV 636.5 Invasive Line 1 10 Intake, IV Titration 58 Amount Heparin Sod,Pork in 0.45% 58 NaCl 25,000 unit In 0.45 % NaCl 1 250ml.bag @ 11.8 UNITS/KG/HR 10.009 mls/ hr IV .Q24H [facility] Rx#: [id number] Oral 200 898 Output: Urine 400 0 Other: Voiding Method Toilet Toilet Toilet Urinal Urinal Urinal # Voids 1 2 2 - Labs CBC & Chem 7: 05/09/24 18:51 05/09/24 18:51 Labs: Abnormal Lab Results - Last 24 Hours (Table) 05/09/24 05/09/24 05/09/24 Range/Units 16:18 18:51 18:51 Hgb (13.0-17.5) gm/dL Plt Count (150-450) k/uL Sodium 134 L (137-145) mmol/L Chloride 110 H (98-107) mmol/L Carbon Dioxide 20 L (22-30) mmol/L Glucose 186 H (74-99) mg/dL POC Glucose (mg/dL) 179 H (70-110) mg/dL Hemoglobin A1c (<=6.0) % Total Protein 5.6 L (6.3-8.2) g/dL Albumin 3.4 L (3.5-5.0) g/dL Triglycerides 252.00 H (0.00-149.00) mg/dL VLDL Cholesterol, Calc 50.40 H (5.00-40.00) mg/dL HDL Cholesterol 29.90 L (40.00-60.00) mg/dL 05/09/24 05/09/24 05/10/24 Range/Units 18:51 19:59 06:30 Hgb 17.6 H (13.0-17.5) gm/dL Plt Count 145 L (150-450) k/uL Sodium (137-145) mmol/L Chloride (98-107) mmol/L Carbon Dioxide (22-30) mmol/L Glucose (74-99) mg/dL POC Glucose (mg/dL) 202 H 175 H (70-110) mg/dL Hemoglobin A1c (<=6.0) % Total Protein (6.3-8.2) g/dL Albumin (3.5-5.0) g/dL Triglycerides (0.00-149.00) mg/dL VLDL Cholesterol, Calc (5.00-40.00) mg/dL HDL Cholesterol (40.00-60.00) mg/dL 05/10/24 05/10/24 Range/Units 07:08 11:51 Hgb (13.0-17.5) gm/dL Plt Count (150-450) k/uL Sodium (137-145) mmol/L Chloride (98-107) mmol/L Carbon Dioxide (22-30) mmol/L Glucose (74-99) mg/dL POC Glucose (mg/dL) 235 H (70-110) mg/dL Hemoglobin A1c 7.4 H (<=6.0) % Total Protein (6.3-8.2) g/dL Albumin (3.5-5.0) g/dL Triglycerides (0.00-149.00) mg/dL VLDL Cholesterol, Calc (5.00-40.00) mg/dL HDL Cholesterol (40.00-60.00) mg/dL
[2024-05-10 16:33] LABS: Glucose,Whole Blood 191 mg/dL (70-110)
[2024-05-10 20:20] LABS: Glucose,Whole Blood 239 mg/dL (70-110)
[2024-05-11 06:03] LABS: Glucose,Whole Blood 194 mg/dL (70-110)
[2024-05-11] MEDS: EZETIMIBE 10 MG TAB PO SCH (11:17)
[2024-05-11] MEDS ORDERED: NITROGLYCERIN SL TABS 0.4 MG TAB SUBLINGUAL PRN (11:18)
[2024-05-11] MEDS ORDERED: ALPRAZolam 0.5 MG TAB PO PRN (11:18)
[2024-05-11] MEDS ORDERED: ALPRAZolam 0.25 MG TAB PO PRN (11:18)
--- NOTE | 2024-05-11 11:21 | P.PN ---
Subjective HISTORY OF PRESENT ILLNESS: Patient is status postcardiac catheterization yesterday with Dr. Andrade revealing 70% RCA stenosis, 80% circumflex stenosis, 70% proximal LAD stenosis with 100% mid LAD stenosis. CT surgery was consulted for CABG evaluation. Patient was found not to be a surgical candidate due to his small coronary vessels and bypasses would fail. Patient examined this morning at the bedside. Patient currently denies any chest pain or pressure. He denies any shortness of breath. He has been up ambulating without difficulty. Vital signs are stable. Echocardiogram completed revealing ejection fraction 55 to 60% with moderate left atrial enlargement. 05/11/2024 Patient examined this morning at bedside. Patient currently denies any chest pain or pressure. Denies shortness of breath. Vital signs are stable. PHYSICAL EXAM: VITAL SIGNS: Reviewed. GENERAL: Well-developed in no acute distress. NECK: Supple. No JVD or thyromegaly LUNGS: Respirations even and unlabored. Lungs essentially clear to auscultation bilaterally. HEART: Regular rate and rhythm. S1 and S2 heard. EXTREMITIES: Normal range of motion. No clubbing or cyanosis. Peripheral pulses intact. No lower extremity edema ASSESSMENT: Non-STEMI status post cardiac catheterization revealing triple-vessel coronary artery disease as above, deemed poor candidate for CABG Hypertension Hyperlipidemia Diabetes Nicotine dependence Occasional marijuana use Questionable brief episode of atrial fibrillation at [facility] PLAN: Continue current cardiac medications Add Zetia 10mg daily N.p.o. at midnight Patient deemed poor candidate for CABG. Patient to undergo PCI tomorrow with Dr. Andrade. Further recommendations pending patient course Nurse practitioner note has been reviewed by physician. Signing provider agrees with the documented findings, assessment, and plan of care documented by WREATH MACHINE TENDER as a scribe. Objective - Vital Signs Vital signs: Vital Signs Temp 97.8 F 05/11/24 08:00 Pulse 55 L 05/11/24 08:00 Resp 17 05/11/24 08:00 BP 134/74 05/11/24 08:00 Pulse Ox 97 05/11/24 08:00 FiO2 Intake & Output 05/10/24 05/11/24 05/11/24 18:59 06:59 18:59 Intake Total 1134 358 Output Total 0 Balance 1134 0 358 Weight 79.9 kg Intake: Oral 1134 358 Output: Urine 0 Other: Voiding Method Toilet Toilet Toilet Urinal Urinal Urinal # Voids 2 - Labs CBC & Chem 7: 05/09/24 18:51 05/09/24 18:51 Labs: Abnormal Lab Results - Last 24 Hours (Table) 05/10/24 05/10/24 05/10/24 Range/Units 07:08 11:51 16:31 POC Glucose (mg/dL) 235 H 191 H (70-110) mg/dL Hemoglobin A1c 7.4 H (<=6.0) % 05/10/24 05/11/24 Range/Units 20:18 06:02 POC Glucose (mg/dL) 239 H 194 H (70-110) mg/dL Hemoglobin A1c (<=6.0) %
[2024-05-11 11:31] LABS: Glucose,Whole Blood 197 mg/dL (70-110)
--- NOTE | 2024-05-11 14:49 | P.PN ---
Subjective Progress Note Date: 05/11/24 Interval History: Patient admitted for NSTEMI, underwent cardiac catheterization which showed three-vessel coronary artery disease, cardiology and cardiac surgery consulted, cardiac surgery recommended PCI/medical management. Cardiology planning for PCI on Sunday or Sunday. Patient was seen and examined today. Denied any further chest pain shortness of breath, dizziness, palpitations. Counseling to quit smoking done. 05/11--patient was seen and examined today. No issues overnight. Patient feeling better today. Cardiology following, plan for PCI tomorrow. Echocardiogram showed EF 55 to 60% with moderate left atrial enlargement. REVIEW OF SYSTEMS: CONSTITUTIONAL: No fever, no malaise,. CARDIOVASCULAR: No chest pain, no palpitations, no syncope. PULMONARY: No shortness of breath, no cough, GASTROINTESTINAL: No diarrhea, no nausea, no vomiting, no abdominal pain. NEUROLOGICAL: No headaches, no weakness, PHYSICAL EXAMINATION: GENERAL: The patient is alert and oriented x3, not in any acute distress. Well developed, well nourished. HEENT: Pupils are round and equally reacting to light. EOMI. No scleral icterus. No conjunctival pallor. Normocephalic, atraumatic. No pharyngeal erythema. No thyromegaly. CARDIOVASCULAR: S1 and S2 present. No murmurs, rubs, or gallops. PULMONARY: Chest is clear to auscultation, no wheezing or crackles. ABDOMEN: Soft, nontender, nondistended, normoactive bowel sounds. No palpable organomegaly. MUSCULOSKELETAL: No joint swelling or deformity. EXTREMITIES: No cyanosis, clubbing, or pedal edema. NEUROLOGICAL: Gross neurological examination did not reveal any focal deficits. SKIN: No rashes. Assessment and plan NSTEMI: Three-vessel coronary artery disease: Hypertension: Hyperlipidemia: Admitted for NSTEMI, s/p cardiac catheterization showing three-vessel coronary artery disease, 70% RCA stenosis, 80% circumflex stenosis, 70% proximal LAD stenosis with 100% mid LAD stenosis. Echocardiogram showed 55 to 60% EF with moderate left atrial enlargement. Cardiology and cardiac surgery consulted Was initially on heparin drip. Cardiac surgery recommended no surgical intervention, poor surgical candidate Plan for LHC/PCI on Sunday Aspirin, statin, beta-gerardo, Imdur, as needed sublingual nitroglycerin. Counseling to quit smoking done. Marijuana use: Nicotine dependence Reported brief episode of atrial fibrillation at outside facility Dictation was produced using [employer] dictation software. please excuse any grammatical, word or spelling errors. Objective - Vital Signs Vital signs: Vital Signs Temp 97.8 F 05/11/24 08:00 Pulse 50 L 05/11/24 12:00 Resp 16 05/11/24 12:00 BP 112/64 05/11/24 12:00 Pulse Ox 97 05/11/24 12:00 FiO2 Intake & Output 05/10/24 05/11/24 05/11/24 18:59 06:59 18:59 Intake Total 1134 898 Output Total 0 Balance 1134 0 898 Weight 79.9 kg Intake: Oral 1134 898 Output: Urine 0 Other: Voiding Method Toilet Toilet Toilet Urinal Urinal Urinal # Voids 2 2 - Labs CBC & Chem 7: 05/09/24 18:51 05/09/24 18:51 Labs: Abnormal Lab Results - Last 24 Hours (Table) 05/10/24 05/10/24 05/11/24 Range/Units 16:31 20:18 06:02 POC Glucose (mg/dL) 191 H 239 H 194 H (70-110) mg/dL 05/11/24 Range/Units 11:29 POC Glucose (mg/dL) 197 H (70-110) mg/dL
[2024-05-11 16:48] LABS: Glucose,Whole Blood 174 mg/dL (70-110)
[2024-05-11 19:55] LABS: Glucose,Whole Blood 185 mg/dL (70-110)
[2024-05-12] MEDS: SODIUM CHLORIDE 0.9% 1,000 ML in EMPTY BAG 1 BAG IV SCH (03:07)
[2024-05-12] MEDS: ASPIRIN 325 MG TAB PO ONE (04:00)
[2024-05-12] MEDS: ATORVASTATIN 80 MG TAB PO ONE (04:00)
[2024-05-12 05:54] LABS: Glucose,Whole Blood 236 mg/dL (70-110)
--- NOTE | 2024-05-12 08:44 | P.PN ---
Subjective Progress Note Date: 05/12/24 This is a 63-year-old male who presented to the emergency department with complaints of significant chest pressure. Patient had elevated troponins on admission and NSTEMI was noted. Catheterization revealed 100% stenosis in the mid LAD. Patient is a poor surgical candidate for CABG per surgical team. PCI is planned for today. Objective - Vital Signs Vital signs: Vital Signs Temp 97.4 F L 05/12/24 03:14 Pulse 50 L 05/12/24 03:14 Resp 16 05/12/24 03:14 BP 158/64 05/12/24 03:14 Pulse Ox 97 05/12/24 03:14 FiO2 Intake & Output 05/11/24 05/12/24 05/12/24 18:59 06:59 18:59 Intake Total 1134 Output Total 0 Balance 1134 0 Weight 80.3 kg Intake: Oral 1134 Output: Urine 0 Other: Voiding Method Toilet Toilet Urinal Urinal # Voids 2 1 - Constitutional General appearance: Present: cooperative, no acute distress - EENT Eyes: Present: PERRLA - Neck Neck: Present: normal ROM. Absent: lymphadenopathy, rigidity - Respiratory Respiratory: bilateral: CTA - Cardiovascular Rhythm: regular Heart sounds: normal: S1, S2 - Gastrointestinal General gastrointestinal: Present: soft. Absent: tenderness - Integumentary Integumentary: Present: normal, normal turgor - Psychiatric Psychiatric: Present: A&O x's 3, appropriate affect, intact judgment & insight - Labs CBC & Chem 7: 05/09/24 18:51 05/09/24 18:51 Labs: Abnormal Lab Results - Last 24 Hours (Table) 05/11/24 05/11/24 05/11/24 Range/Units 11:29 16:46 19:54 POC Glucose (mg/dL) 197 H 174 H 185 H (70-110) mg/dL 05/12/24 Range/Units 05:53 POC Glucose (mg/dL) 236 H (70-110) mg/dL Microbiology - Last 24 Hours (Table) 05/09/24 16:43 Nasal Screen MRSA/MSSA - Final Nasal Swab Assessment and Plan (1) Acute non-ST elevation myocardial infarction (NSTEMI) Current Visit: Yes Status: Acute Code(s): I21.4 - NON-ST ELEVATION (NSTEMI) MYOCARDIAL INFARCTION SNOMED Code(s): 393981313 (2) Diabetes Current Visit: Yes Status: Acute Code(s): E11.9 - TYPE 2 DIABETES MELLITUS WITHOUT COMPLICATIONS SNOMED Code(s): 93757496 (3) Hyperlipidemia Current Visit: Yes Status: Acute Code(s): E78.5 - HYPERLIPIDEMIA, UNSPECIFIED SNOMED Code(s): 63392185 (4) Hypertension Current Visit: Yes Status: Acute Code(s): I10 - ESSENTIAL (PRIMARY) HYPERTENSION SNOMED Code(s): 39391536 Plan: Await PCI today. Appreciate multiple consultants. Patient seen and evaluated by nurse practitioner, physician in agreement with plan
--- NOTE | 2024-05-12 08:55 | P.PN ---
Subjective Progress Note Date: 05/12/24 The patient is a pleasant 62-year-old gentleman with a past medical history significant for CAD who was diagnosed recently with severe triple-vessel as well as hypertension and dyslipidemia and he was referred for open heart surgery but deemed to be high risk and the plan is to pursue with PCI May 12, 2024 The patient was seen and evaluated this morning. He is asymptomatic at this point and hemodynamically stable beside marginally low heart rate. Examination is remarkable for regular rhythm with clear breathing sounds bilaterally and no edema was noted. Ejection fraction is normal Assessment Severe triple-vessel CAD Multiple comorbid conditions Plan Continue the current medical regimen Proceed with PCI later on today Objective - Vital Signs Vital signs: Vital Signs Temp 97.4 F L 05/12/24 03:14 Pulse 50 L 05/12/24 03:14 Resp 16 05/12/24 03:14 BP 158/64 05/12/24 03:14 Pulse Ox 97 05/12/24 03:14 FiO2 Intake & Output 05/11/24 05/12/24 05/12/24 18:59 06:59 18:59 Intake Total 1134 Output Total 0 Balance 1134 0 Weight 80.3 kg Intake: Oral 1134 Output: Urine 0 Other: Voiding Method Toilet Toilet Urinal Urinal # Voids 2 1 - Labs CBC & Chem 7: 05/09/24 18:51 05/09/24 18:51 Labs: Abnormal Lab Results - Last 24 Hours (Table) 05/11/24 05/11/24 05/11/24 Range/Units 11:29 16:46 19:54 POC Glucose (mg/dL) 197 H 174 H 185 H (70-110) mg/dL 05/12/24 Range/Units 05:53 POC Glucose (mg/dL) 236 H (70-110) mg/dL Microbiology - Last 24 Hours (Table) 05/09/24 16:43 Nasal Screen MRSA/MSSA - Final Nasal Swab
[2024-05-12 11:17] LABS: Glucose,Whole Blood 141 mg/dL (70-110)
[2024-05-12] MEDS: ALPRAZolam 0.25 MG TAB PO PRN (13:24)
--- NOTE | 2024-05-12 15:55 | P.CARDCATH ---
Date of Procedure: 05/09/24 Description of Procedure: PROCEDURES PERFORMED: Left heart catheterization, bilateral coronary angiography, ultrasound guided arterial access INDICATION: NSTEMI CONSENT:I have discussed the risks, benefits and alternative therapies for the above-mentioned procedure and for both sedation/analgesia as well as necessary blood product administration, if indicated, as they pertain to this patient. The patient has indicated understanding and acceptance of the risks and procedures discussed. PROCEDURE: After the risks, benefits and alternatives of the above mentioned procedure explained in detail with the patient, informed consent was obtained. Patient was taken to the catheterization lab and prepped and draped in usual fashion. Ultrasound guidance was used to assess for arterial access. 1% lidocaine was used to anesthetize the right radial artery. A 6-Malawian sheath was placed in the right radial artery using modified Seldinger technique and ultrasound guidance. Left coronary angiography was performed with a 5-Malawian JL 3.5 catheter and right coronary angiography was performed with a 5-Malawian FR5 catheter in various views. A 5-Malawian FR5 catheter was inserted into the left ventricle and pressure measurements were obtained. The right radial sheath was removed and a TR band was placed with hemostasis achieved. The patient tolerated the procedure well. Patient was transported back to the post catheterization holding area in stable condition. Conscious Sedation: Patient was monitored under the direct supervision of myself for conscious sedation using Versed and fentanyl for a total duration of 7 minutes HEMODYNAMICS: Ao: 132/71 LV: 133/8, LVEDP 23 SELECTIVE CORONARY ARTERIOGRAPHY: LEFT MAIN: The left main is a large caliber vessel which bifurcates into the LAD and circumflex. There is 30% left main stenosis. LEFT ANTERIOR DESCENDING CORONARY ARTERY: LAD is a large caliber vessel which wraps around to the apex. there is extremely heavily calcified entire LAD with proximal and mid 30-50% stenosis. At the level of a small caliber diagonal branch there is a 60-70% stenosis. Just distal to the diagonal branch there is 100% mid LAD stenosis. There are left to left collaterals from the diagonal branch via the apex. LEFT CIRCUMFLEX CORONARY ARTERY: Left circumflex is a moderate caliber vessel. The circumflex gives off OM1 and OM 2 branch proximally with OM1 being small caliber and having a proximal 75% stenosis and OM2 being small caliber and having a proximal 50% stenosis. RIGHT CORONARY ARTERY: The right coronary artery is a large caliber vessel which gives off a PDA and PLV branch and is the dominant vessel. There is diffuse disease of the entire RCA with a more proximal RCA 80% stenosis and mid RCA 50% stenosis. The PLV branch has a 99% stenosis. FINAL IMPRESSION: 1. multivessel CAD as described above including 30% left main stenosis, 100% m id LAD stenosis, 60-70% diagonal 1 stenosis, OM1 small caliber 75% stenosis, OM 2 50% stenosis, 80% proximal RCA stenosis, 99% PLV stenosis. 2. Elevated left sided filling pressures PLAN: 1. Aggressive risk factor modification per most recent ACC/AHA guidelines. 2. CABG evaluation
[2024-05-12 16:23] LABS: Glucose,Whole Blood 189 mg/dL (70-110)
[2024-05-12] MEDS: CLOPIDOGREL 75 MG TAB PO STA (17:02)
[2024-05-12 19:53] LABS: Glucose,Whole Blood 216 mg/dL (70-110)
[2024-05-12 22:13] LABS: Glucose,Whole Blood 236 mg/dL (70-110)
[2024-05-12] MEDS: ALPRAZolam 0.5 MG TAB PO PRN (22:19)
[2024-05-13 05:42] LABS: Glucose,Whole Blood 162 mg/dL (70-110)
[2024-05-13] MEDS: CLOPIDOGREL 75 MG TAB PO SCH (06:34)
--- NOTE | 2024-05-13 08:46 | P.PN ---
Subjective Progress Note Date: 05/13/24 This is a 63-year-old male who presented to the emergency department with complaints of significant chest pressure. Patient had elevated troponins on admission and NSTEMI was noted. Catheterization revealed 100% stenosis in the mid LAD. Patient is a poor surgical candidate for CABG per surgical team. PCI is planned for today. 05/13/2024 Patient seen this morning standing at side of bed. He did not have PCI yesterday and became very agitated. He wanted to leave yesterday but nursing staff was able to calm patient down. Unsure of reasoning PCI not completed yesterday. Patient is apparently on the schedule for it today. Xanax is ordered as needed for anxiety. Vitals are stable. Objective - Vital Signs Vital signs: Vital Signs Temp 97.7 F 05/13/24 00:00 Pulse 54 L 05/13/24 04:00 Resp 15 05/13/24 04:00 BP 152/77 05/13/24 04:00 Pulse Ox 96 05/13/24 04:00 FiO2 Intake & Output 05/12/24 05/13/24 05/13/24 18:59 06:59 18:59 Intake Total 360 780 Balance 360 780 Intake: Oral 360 780 Other: Voiding Method Toilet Toilet Urinal Urinal - Constitutional General appearance: Present: cooperative, no acute distress - EENT Eyes: Present: PERRLA - Neck Neck: Present: normal ROM. Absent: lymphadenopathy, rigidity - Respiratory Respiratory: bilateral: CTA - Cardiovascular Rhythm: regular Heart sounds: normal: S1, S2 - Gastrointestinal General gastrointestinal: Present: soft. Absent: tenderness - Integumentary Integumentary: Present: normal, normal turgor - Psychiatric Psychiatric: Present: A&O x's 3, appropriate affect, intact judgment & insight - Labs CBC & Chem 7: 05/09/24 18:51 05/09/24 18:51 Labs: Abnormal Lab Results - Last 24 Hours (Table) 05/12/24 05/12/24 05/12/24 Range/Units 11:14 16:19 19:49 POC Glucose (mg/dL) 141 H 189 H 216 H (70-110) mg/dL 05/12/24 05/13/24 Range/Units 22:11 05:35 POC Glucose (mg/dL) 236 H 162 H (70-110) mg/dL Assessment and Plan (1) Acute non-ST elevation myocardial infarction (NSTEMI) Current Visit: Yes Status: Acute Code(s): I21.4 - NON-ST ELEVATION (NSTEMI) MYOCARDIAL INFARCTION SNOMED Code(s): 322322642 (2) Diabetes Current Visit: Yes Status: Acute Code(s): E11.9 - TYPE 2 DIABETES MELLITUS WITHOUT COMPLICATIONS SNOMED Code(s): 82742841 (3) Hyperlipidemia Current Visit: Yes Status: Acute Code(s): E78.5 - HYPERLIPIDEMIA, UNSPECIFIED SNOMED Code(s): 58675062 (4) Hypertension Current Visit: Yes Status: Acute Code(s): I10 - ESSENTIAL (PRIMARY) HYPERTENSION SNOMED Code(s): 07742446 Plan: Await PCI today. Xanax as needed for anxiety and agitation. Patient seen and evaluated by nurse practitioner, physician in agreement with kraig dale
[2024-05-13] MEDS: ASPIRIN 325 MG TAB PO STA (09:05)
[2024-05-13 11:43] LABS: Glucose,Whole Blood 188 mg/dL (70-110)
--- NOTE | 2024-05-13 12:33 | P.PN ---
Subjective HISTORY OF PRESENT ILLNESS: Patient is status postcardiac catheterization yesterday with Dr. Andrade revealing 70% RCA stenosis, 80% circumflex stenosis, 70% proximal LAD stenosis with 100% mid LAD stenosis. CT surgery was consulted for CABG evaluation. Patient was found not to be a surgical candidate due to his small coronary vessels and bypasses would fail. Patient examined this morning at the bedside. Patient currently denies any chest pain or pressure. He denies any shortness of breath. He has been up ambulating without difficulty. Vital signs are stable. Echocardiogram completed revealing ejection fraction 55 to 60% with moderate left atrial enlargement. 05/11/2024 Patient examined this morning at bedside. Patient currently denies any chest pain or pressure. Denies shortness of breath. Vital signs are stable. 05/13/2024 Patient examined this morning the bedside by Dr. Azevedo. Patient currently denies chest pain or pressure. He denies shortness of breath. Vital signs are stable. Telemetry reveals sinus mechanism. PHYSICAL EXAM: VITAL SIGNS: Reviewed. GENERAL: Well-developed in no acute distress. NECK: Supple. No JVD or thyromegaly LUNGS: Respirations even and unlabored. Lungs essentially clear to auscultation bilaterally. HEART: Regular rate and rhythm. S1 and S2 heard. EXTREMITIES: Normal range of motion. No clubbing or cyanosis. Peripheral pulses intact. No lower extremity edema ASSESSMENT: Non-STEMI status post cardiac catheterization revealing triple-vessel coronary artery disease as above, deemed poor candidate for CABG Hypertension Hyperlipidemia Diabetes Nicotine dependence Occasional marijuana use Questionable brief episode of atrial fibrillation at [facility] PLAN: Continue current cardiac medications Patient deemed poor candidate for CABG by CT surgery Patient to undergo PCI today with Dr. Andrade Further recommendations pending patient course Nurse practitioner note has been reviewed by physician. Signing provider agrees with the documented findings, assessment, and plan of care documented by PATIENT SERVICES REP as a scribe. Objective - Vital Signs Vital signs: Vital Signs Temp 97.7 F 05/13/24 09:02 Pulse 47 L 05/13/24 12:17 Resp 18 05/13/24 12:17 BP 136/79 05/13/24 12:17 Pulse Ox 99 05/13/24 12:17 FiO2 Intake & Output 05/12/24 05/13/24 05/13/24 18:59 06:59 18:59 Intake Total 360 780 Balance 360 780 Intake: Oral 360 780 Other: Voiding Method Toilet Toilet Toilet Urinal Urinal Urinal - Labs CBC & Chem 7: 05/09/24 18:51 05/09/24 18:51 Labs: Abnormal Lab Results - Last 24 Hours (Table) 05/12/24 05/12/24 05/12/24 Range/Units 16:19 19:49 22:11 POC Glucose (mg/dL) 189 H 216 H 236 H (70-110) mg/dL 05/13/24 05/13/24 Range/Units 05:35 11:38 POC Glucose (mg/dL) 162 H 188 H (70-110) mg/dL
[2024-05-13] MEDS ORDERED: HEPARIN SODIUM 1,000 UN/ML (10ML VL) ONE (14:50)
[2024-05-13] MEDS ORDERED: VERAPAMIL 2.5 MG/ML 2 ML AMP ONE (14:50)
[2024-05-13] MEDS ORDERED: fentaNYL (PF) 50 MCG/ML 2 ML AMP ONE (14:50)
[2024-05-13] MEDS ORDERED: LIDOCAINE 1% INJ 10MG/ML (20 ML MDV) ONE (14:50)
[2024-05-13] MEDS: fentaNYL (PF) 50 MCG/ML 2 ML AMP IVP ONE (14:58)
[2024-05-13] MEDS: MIDAZOLAM 2 MG/2 ML VIAL IVP ONE ×2 (14:58→15:13)
[2024-05-13] MEDS: IV FLUID CONTINUATION 300 ML IV ONE (15:00)
[2024-05-13] MEDS: LIDOCAINE 2% (PF) 20 MG/ML 5 ML VIAL SQ ONE (15:13)
[2024-05-13] MEDS: HEPARIN SODIUM 1,000 UN/ML (10ML VL) IVP ONE (15:15)
[2024-05-13] MEDS: VERAPAMIL SYRINGE (5 MG/10 ML) INTRAARTER ONE (15:15)
[2024-05-13] MEDS: HEPARIN SODIUM,PORCINE 10,000 UNIT in SODIUM CHLORIDE 0.9% 1,000 ML IRRIGATION PRN (15:48)
[2024-05-13] MEDS: HEPARIN SODIUM,PORCINE (1 ML) 2,500 UNIT in SODIUM CHLORIDE 0.9% 250 ML IRRIGATION PRN (15:48)
[2024-05-13] MEDS: IOPAMIDOL-370 100ML BTL INJ ONE ×2 (15:53→15:58)
--- NOTE | 2024-05-13 16:05 | P.PRCINT ---
Percutaneous Coronary Int. - Percutaneous Coronary Intervention Percutaneous Coronary Intervention: PROCEDURES PERFORMED: Right coronary angiography, ultrasound guided arterial access, intravascular ultrasound RCA, PCI proximal to mid RCA with a 4.5 x 33 mm Xience JERSON, post dilated with a 5.0 NC balloon INDICATION:non-STEMI CONSENT:I have discussed the risks, benefits and alternative therapies for the above-mentioned procedure and for both sedation/analgesia as well as necessary blood product administration, if indicated, as they pertain to this patient. The patient has indicated understanding and acceptance of the risks and procedures discussed. PROCEDURE: After the risks, benefits and alternatives of the above mentioned procedure explained in detail with the patient, informed consent was obtained. Patient was taken to the catheterization lab and prepped and draped in usual fashion. Ultrasound guidance was used to assess for arterial access. 1% lidocaine was used to anesthetize the right radial artery. A 6-[place] sheath was placed in the right radial artery using modified Seldinger technique and ultrasound guidance. The decision was made to perform PCI of the RCA. Heparin was given. A 6-[place] JL 0.75 guide was used to engage RCA. A 0.014 wire was advanced to the distal PLV. Initially attempted advancing a 2.0 as well as 1.5 mm balloon into the PLV however there was difficulty wiring the lesion and difficulty passing any balloon passed the proximal portion of the lesion. This appeared to be behaving more like a COATER SMOKING PIPE and therefore given this was well collateralized decision made to treat this medically and only treat the proximal RCA. Balloon angioplasty was briefly performed with a 2.0 mm balloon to facilitate passage of the intravascular ultrasound. Intravascular ultrasound showed diffuse calcifications as well as mildly aneurysmal artery up to 5.0 mm and a more proximal calcified 80% stenosis. predilation was performed with a 4.0 mm noncompliant balloon. Next a 4.5 mm x 33mm Xience JERSON was placed from the origin to the mid RCA. The stent was postdilated with a 5.0 mm balloon. Final angiograms as well as intravascular ultrasound was performed which showed good stent apposition with less than 10% stenosis. Pre-intervention there was 80% stenosis and JAYME-3 flow and postintervention there was less than 10% stenosis with JAYME 3 flow. The right radial sheath was removed and a TR band was placed with hemostasis achieved. The patient tolerated the procedure well. Patient was transported back to the post catheterization holding area in stable condition. Conscious Sedation: Patient was monitored under the direct supervision of myself for conscious sedation using Versed and fentanyl for a total duration of 44 minutes HEMODYNAMICS: Aorta: 131/81 SELECTIVE CORONARY ARTERIOGRAPHY: LEFT MAIN: Not imaged, see separate report LEFT ANTERIOR DESCENDING CORONARY ARTERY: Not imaged, see separate report LEFT CIRCUMFLEX CORONARY ARTERY: Not imaged, see separate report RIGHT CORONARY ARTERY: The right coronary artery is a large caliber vessel which gives off a PDA and PLV branch and is the dominant vessel. There is diffuse heavily calcified proximal to distal RCA with more focal hazy appearance of a calcified 80% proximal RCA stenosis as well as more distal and more proximal 30- 40% stenosis. The mid RCA does have a calcified plaque however not inhibiting flow more diffuse 50% stenosis. The PLV has 100% stenosis with right to right collaterals FINAL IMPRESSION: 1. CAD as described above including 80% proximal RCA stenosis and 100% PLV stenosis 2. S/p PCI proximal to mid RCA with a 4.5 x 33 mm Xience JERSON PLAN: 1. Aggressive risk factor modification per most recent ACC/AHA guidelines. 2. Continue dual antiplatelets with aspirin and Plavix for 12 months. 3. Likely treat remainder of CAD medically unless he has more significant angina
[2024-05-13 16:46] LABS: Glucose,Whole Blood 189 mg/dL (70-110)
[2024-05-13 20:08] LABS: Glucose,Whole Blood 298 mg/dL (70-110)
[2024-05-13] MEDS ORDERED: RX INFO: IV CONTRAST WAS GIVEN 1 EACH MISC MISCELLANE PRN (22:35)
[2024-05-13] MEDS ORDERED: ATROPINE SULFATE 0.1 MG/ML 10ML SYRINGE IV PRN (22:35)
[2024-05-13] MEDS ORDERED: ZOLPIDEM 5 MG TAB PO PRN (22:35)
[2024-05-13] MEDS ORDERED: MAG HYDROX/AL HYDROX/SIMETH 30 ML CUP PO PRN (22:35)
[2024-05-14] MEDS: SODIUM CHLORIDE 0.9% 1,000 ML in EMPTY BAG 1 BAG IV SCH (01:45)
[2024-05-14 05:59] LABS: Glucose,Whole Blood 156 mg/dL (70-110)
--- NOTE | 2024-05-14 08:29 | P.DS ---
Providers Date of admission: 05/08/24 20:06 Attending physician: Brayden Kerns Consults: 05/08/24 20:04 Consult Physician Urgent Consulting Provider: Cardiology Aline Consult Reason/Comments: NSTEMI Do you want consulting provider notified?: Already Contacted 05/13/24 22:35 Consult Physician Routine Consulting Provider: Estelle Mireles Consult Reason/Comments: Post Interventional Patient Do you want consulting provider notified?: Already Contacted Primary care physician: Brayden Kerns - Discharge Diagnosis(es) (1) Diabetes Current Visit: Yes Status: Acute (2) Hypertension Current Visit: Yes Status: Acute (3) Hyperlipidemia Current Visit: Yes Status: Acute (4) Acute non-ST elevation myocardial infarction (NSTEMI) Current Visit: Yes Status: Acute Hospital Course: The patient was admitted for NSTEMI and ended up having cardiac catheterization. After this, he was evaluated for coronary bypass graft but deemed to have 2 small coronary arteries to be fruitful. He ended up having PCI and will have outpatient follow-up with cardiology to continue medical management of coronary artery disease. The patient is pain-free and diagnosed with NSTEMI. Smoke cessation was again discussed at length. Blood sugar control is also reiterated to the patient. Patient is discharged in stable condition tolerating diet and voiding without difficulty and will follow-up with me in about 3 days Patient Condition at Discharge: Fair Plan - Discharge Summary Discharge Rx Participant: No New Discharge Prescriptions: New Aspirin 81 mg PO DAILY #90 tab Isosorbide Mononitrate ER [Imdur] 30 mg PO DAILY #90 tab Nitroglycerin Sl Tabs [Nitrostat] 0.4 mg SUBLINGUAL Q5M PRN #50 tab PRN Reason: Chest Pain carvediloL [Coreg] 3.125 mg PO BID-W/MEALS #180 tab Atorvastatin [Lipitor] 80 mg PO DAILY #90 tab Clopidogrel [Plavix] 75 mg PO DAILY #90 tab Ezetimibe [Zetia] 10 mg PO DAILY #90 tab Continue Dapagliflozin Propanediol [Farxiga] 10 mg PO DAILY HYDROcodone/APAP 5-325MG [[place] 5-325] 1 tab PO QID metFORMIN HCL [Glucophage] 1,000 mg PO BID Rosuvastatin [Crestor] 10 mg PO DAILY Lisinopril-Hctz 20-25 mg [Zestoretic 20-25] 1 tab PO DAILY Discontinued Bisoprolol [Zebeta] 5 mg PO DAILY Discharge Medication List Dapagliflozin Propanediol [Farxiga] 10 mg PO DAILY 05/08/24 [History] HYDROcodone/APAP 5-325MG [[place] 5-325] 1 tab PO QID 05/08/24 [History] Lisinopril-Hctz 20-25 mg [Zestoretic 20-25] 1 tab PO DAILY 05/08/24 [History] Rosuvastatin [Crestor] 10 mg PO DAILY 05/08/24 [History] metFORMIN HCL [Glucophage] 1,000 mg PO BID 05/08/24 [History] Aspirin 81 mg PO DAILY #90 tab 05/14/24 [Rx] Atorvastatin [Lipitor] 80 mg PO DAILY #90 tab 05/14/24 [Rx] Clopidogrel [Plavix] 75 mg PO DAILY #90 tab 05/14/24 [Rx] Ezetimibe [Zetia] 10 mg PO DAILY #90 tab 05/14/24 [Rx] Isosorbide Mononitrate ER [Imdur] 30 mg PO DAILY #90 tab 05/14/24 [Rx] Nitroglycerin Sl Tabs [Nitrostat] 0.4 mg SUBLINGUAL Q5M PRN #50 tab 05/14/24 [Rx] carvediloL [Coreg] 3.125 mg PO BID-W/MEALS #180 tab 05/14/24 [Rx] Follow up Appointment(s)/Referral(s): Marco Lord MD [STAFF PHYSICIAN] - 1 Week Brayden Kerns MD [Primary Care Provider] - 3 Days Discharge Disposition: HOME SELF-CARE
[2024-05-14 08:44] VITALS: BP 159/73; PULSE 52; RESP 18; TEMP 98.1
[2024-05-14 08:47] LABS: African American GFR (CKD) >90 (>60 ml/min/1.73 sqM); Non-African American GFR(CKD) >90 (>60 ml/min/1.73 sqM)
--- NOTE | 2024-05-14 14:03 | P.PN ---
Subjective HISTORY OF PRESENT ILLNESS: Patient is status postcardiac catheterization yesterday with Dr. Andrade revealing 70% RCA stenosis, 80% circumflex stenosis, 70% proximal LAD stenosis with 100% mid LAD stenosis. CT surgery was consulted for CABG evaluation. Patient was found not to be a surgical candidate due to his small coronary vessels and bypasses would fail. Patient examined this morning at the bedside. Patient currently denies any chest pain or pressure. He denies any shortness of breath. He has been up ambulating without difficulty. Vital signs are stable. Echocardiogram completed revealing ejection fraction 55 to 60% with moderate left atrial enlargement. 05/11/2024 Patient examined this morning at bedside. Patient currently denies any chest pain or pressure. Denies shortness of breath. Vital signs are stable. 05/13/2024 Patient examined this morning the bedside by Dr. Azevedo. Patient currently denies chest pain or pressure. He denies shortness of breath. Vital signs are stable. Telemetry reveals sinus mechanism. 05/14/2024 Patient examined this morning the bedside by Dr. Azevedo. Patient is s/p PCI to the mid RCA with Dr. Andrade. Patient currently denies chest pain or pressure. He denies shortness of breath. Vital signs are stable. Telemetry reveals sinus mechanism. PHYSICAL EXAM: VITAL SIGNS: Reviewed. GENERAL: Well-developed in no acute distress. NECK: Supple. No JVD or thyromegaly LUNGS: Respirations even and unlabored. Lungs essentially clear to auscultation bilaterally. HEART: Regular rate and rhythm. S1 and S2 heard. EXTREMITIES: Normal range of motion. No clubbing or cyanosis. Peripheral pulses intact. No lower extremity edema ASSESSMENT: Non-STEMI status post cardiac catheterization revealing triple-vessel coronary artery disease as above, deemed poor candidate for CABG, s/p PCI mid RCA Hypertension Hyperlipidemia Diabetes Nicotine dependence Occasional marijuana use Questionable brief episode of atrial fibrillation at [facility] PLAN: Continue current cardiac medications Patient may be discharged home today from a cardiac standpoint Further recommendations pending patient course Nurse practitioner note has been reviewed by physician. Signing provider agrees with the documented findings, assessment, and plan of care documented by CONCRETE FLOATER as a scribe. Objective - Vital Signs Vital signs: Vital Signs Temp 98.1 F 05/14/24 08:00 Pulse 52 L 05/14/24 08:00 Resp 18 05/14/24 08:00 BP 159/73 05/14/24 08:00 Pulse Ox 97 05/14/24 08:00 FiO2 Intake & Output 05/13/24 05/14/24 05/14/24 18:59 06:59 18:59 Intake Total 640 118 Balance 640 118 Weight 83.2 kg Intake: IV 400 Oral 240 118 Other: Voiding Method Toilet Toilet Urinal Urinal # Voids 2 1 - Labs CBC & Chem 7: 05/09/24 18:51 05/14/24 08:14 Labs: Abnormal Lab Results - Last 24 Hours (Table) 05/13/24 05/13/24 05/14/24 Range/Units 16:43 20:07 05:57 POC Glucose (mg/dL) 189 H 298 H 156 H (70-110) mg/dL
== END 2024-05-14 10:30 | disposition home or self-care (01) | DRG 322 ==
LOC: EC 18:30 → 3SCARD 20:06
PROVIDERS: ADMIT Family Medicine; ATTEND Family Medicine
PROC: B2111ZZ Fluoroscopy of Multiple Coronary Arteries using Low Osmolar Contrast (ICD-10-PCS; principal; 2024-05-09 11:40)
PROC: 4A023N7 Measurement of Cardiac Sampling and Pressure, Left Heart, Percutaneous Approach (ICD-10-PCS; principal; 2024-05-09 11:40)
PROC: B240ZZ3 Ultrasonography of Single Coronary Artery, Intravascular (ICD-10-PCS; 2024-05-13 13:30)
PROC: 027034Z Dilation of Coronary Artery, One Artery with Drug-eluting Intraluminal Device, Percutaneous Approach (ICD-10-PCS; 2024-05-13 13:30)
DX: I21.4 Non-ST elevation (NSTEMI) myocardial infarction (principal); F11.20 Opioid dependence, uncomplicated; I48.91 Unspecified atrial fibrillation; I25.10 Atherosclerotic heart disease of native coronary artery without angina pectoris; I11.9 Hypertensive heart disease without heart failure; R91.1 Solitary pulmonary nodule; R00.1 Bradycardia, unspecified; R45.1 Restlessness and agitation; F41.9 Anxiety disorder, unspecified; F17.290 Nicotine dependence, other tobacco product, uncomplicated; E78.5 Hyperlipidemia, unspecified; E11.9 Type 2 diabetes mellitus without complications; Z86.16 Personal history of COVID-19; Z79.899 Other long term (current) drug therapy; Z79.84 Long term (current) use of oral hypoglycemic drugs; I25.2 Old myocardial infarction; Z71.6 Tobacco abuse counseling
CPT/HCPCS: 36415; 71046; 71250; 80053; 80061; 80074; 82565; 83036; 83735; 84439; 84443; 84484; 85025; 85610; 85730; 87070; 92978; 93005; 93306; 93458; 93880; 93970; 94150; 94760; 96365; 96366; 99291